=== PATIENT | male | born 1945 | race Caucasian/White ===

== ENCOUNTER 2016-05-26 06:21 | Inpatient (IN) | payer OTHER, MEDICAID ==
[2016-05-26] VITALS (11 sets, daily range): BP systolic 110–191; BP diastolic 63–120
[~2016-05-26] VITALS: Ht 172.7 cm; Wt 83.0 kg
[~2016-05-26 06:21] MED LIST: AMIO200T39 PO; COR6 PO; Digoxin PO; FURO20TA PO; LIP40 PO; Lisinopril PO; POTA10CA42 PO
[2016-05-26] MEDS ORDERED: IPRATROPIUM BROMIDE (0.02%) 0.5MG/2.5ML NEB HHN STA (06:36)
[2016-05-26] MEDS ORDERED: MAGNESIUM 2 G PREMIX 50 ML IV STA (06:36)
[2016-05-26] MEDS ORDERED: ALBUTEROL (0.083%) 2.5MG/3ML NEB HHN STA (06:36)
[2016-05-26] MEDS ORDERED: METHYLPREDNISOLONE SOD SUCC 125 MG/2 ML VIAL IV STA ×2 (06:36)
[2016-05-26] MEDS ORDERED: MAGNESIUM 2 G PREMIX 50 ML IV ONE (06:45)
[2016-05-26 07:14] LABS: BASOPHILS % 0.4 % (0.0-2.0); EOSINOPHILS % 1.2 % (0.0-5.0); HEMATOCRIT. 45.5 % (42.0-52.0); HEMOGLOBIN. 15.5 g/dL (14.0-18.0); LYMPHOCYTES % 26.3 % (20.0-50.0); MEAN CORPUSCULAR HEMOGLOBIN 33.9 pg (28.0-32.0); MEAN CORPUSCULAR HGB CONC 34.1 g/dL (31.0-37.0); MEAN CORPUSCULAR VOLUME 99.5 fL (80.0-94.0); MEAN PLATELET VOLUME 9.5 fl (7.4-10.4); MONOCYTES % 2.8 % (2.0-8.0); NEUTROPHILS % 69.3 % (40.0-76.0); PLATELET 119 x1000/uL (130-400); RED BLOOD CELL COUNT 4.58 mill/uL (4.7-6.1); RED CELL DISTRIBUTION WIDTH 14.3 % (11.6-14.6); WHITE BLOOD COUNT 18.3 x1000/uL (4.5-11.0)
[2016-05-26 07:21] LABS: PROTHROMBIN TIME 10.5 sec
[2016-05-26 07:25] LABS: ALANINE AMINOTRANSFERASE 18 IU/L (13-61); ALBUMIN 3.9 g/dL (3.4-5.0); ANION GAP 14; CALCIUM 8.3 mg/dL (8.5-10.1); CARBON DIOXIDE 26 mEq/L (21-32); CHLORIDE 101 mEq/L (98-107); INDEX HEMOLYSI 1 (1-3); INDEX ICTERIC 1 (1-4); INDEX LIPEMIC 1 (1-3); UREA NITROGEN BLOOD 14 mg/dL (7-21)
[2016-05-26 07:30] LABS: NT PRO B-TYPE NATRIURETIC PEP 1927 pg/mL (5-125); TROPONIN I < 0.02 ng/mL (0.00-0.04); eGFR > 60 mL/min (>60)
[2016-05-26] MEDS ORDERED: FUROSEMIDE 20MG/2ML VIAL IVP ONE (07:45)
[2016-05-26] MEDS ORDERED: ENALAPRIL 2.5MG/2ML VIAL 2ML IV ONE (08:15)
[2016-05-26 08:54] LABS: BG BASE EXCESS -3.8 mmol/L (-2.0-2.0); BG BILEVEL POS AIRWAY PRESSURE ST=15/5; BG CARBOXYHEMOGLOBIN 1.3 % (0.5-1.5); BG DEOXYHEMOGLOBIN 0.5 % (0.0-5.0); BG FRACTION INSPIRED OXYGEN 100; BG HCO3 ACT 22.5 mmol/L (22.0-26.0); BG METHEMOGLOBIN 0.2 % (0.0-1.5); BG OXYGEN SATURATION 99.5 % (92.0-98.5); BG PCO2 45.6 mmHg (35.0-45.0); BG PH 7.312 (7.350-7.450); BG PO2 294.5 mmHg (75.0-100.0); BG PRESSURE SUPPORT 10; BG SAMPLE SITE LEFT RADIAL; BG TOTAL HEMOGLOBIN 15.6 g/dL (12.0-18.0); BG VENT MODE MASK - BIPAP; BG VENT RATE 18 set
[2016-05-26] MEDS ORDERED: IPRATROPIUM/ALBUTEROL 0.5-3(2.5)MG/3ML NEB HHN PRN (09:15)
[2016-05-26] MEDS ORDERED: LORAZEPAM 2MG/ML CPJ IV PRN (09:30)
[2016-05-26] MEDS ORDERED: FUROSEMIDE 20MG/2ML VIAL IVP NR (10:40)
[2016-05-26] MEDS ORDERED: ENOXAPARIN 40MG/0.4ML SYR SUBCUT ONE (10:45)
[2016-05-26 10:49] LABS: CLARITY URINE CLEAR (CLEAR); COLOR URINE YELLOW (YELLOW); GLUCOSE URINE 1+ (NEGATIVE); KETONES URINE NEGATIVE (NEGATIVE); LEUKOCYTE ESTERASE URINE NEGATIVE (NEGATIVE); NITRITE URINE NEGATIVE (NEGATIVE); OCCULT BLOOD URINE NEGATIVE (NEGATIVE); PH URINE 5.5 (4.5-8.0); PROTEIN URINE 1+ (NEGATIVE); SPECIFIC GRAVITY URINE 1.009 (1.005-1.030); UROBILINOGEN URINE 0.2 E.U./dL (0.2-1.0)
[2016-05-26] MEDS ORDERED: CEFTRIAXONE 2 G in DEXTROSE 5% WATER 50 ML IV SCH (11:00)
[2016-05-26 11:11] LABS: FINE GRANULAR CASTS URINE 0-5 /lpf; HYALINE CASTS URINE 0-5 /lpf; SQUAMOUS EPITHELIAL CELL URINE FEW /lpf (RARE/1+)
[2016-05-26 11:12] LABS: RBC URINE 0-2 /hpf (0-2)
[2016-05-26 11:25] LABS: *AMPHETAMINES SCREEN URINE NEGATIVE (NEGATIVE); *BARBITURATES SCREEN URINE NEGATIVE (NEGATIVE); *BENZODIAZEPINES SCREEN URINE NEGATIVE (NEGATIVE); *COCAINE SCREEN URINE NEGATIVE (NEGATIVE); CANNABINOID URINE SCREEN NEGATIVE (NEGATIVE); ECSTASY MDMA SCREEN URINE NEGATIVE (NEGATIVE); METHADONE URINE SCREEN NEGATIVE (NEGATIVE); OPIATES URINE SCREEN NEGATIVE (NEGATIVE); PHENCYCLIDINE URINE SCREEN NEGATIVE (NEGATIVE)
[2016-05-26] MEDS ORDERED: AZITHROMYCIN 500 MG in DEXT 5% WATER 250 ML IV SCH (11:30)
[2016-05-26 11:35] LABS: BACTERIA URINE TRACE; WBC URINE 0-2 /hpf (0-2)
[2016-05-26 12:15] LABS: MAGNESIUM 2.4 mg/dL (1.8-2.4)
[2016-05-26] MEDS ORDERED: ENOXAPARIN 40MG/0.4ML SYR SUBCUT SCH (13:00)
[2016-05-26] MEDS ORDERED: NICOTINE 21MG PATCH TD SCH (13:00)
[2016-05-26] MEDS: AMIODARONE HCL 200 MG TABLET PO SCH (13:59)
[2016-05-26] MEDS: FOLIC ACID 1MG TABLET PO SCH (14:04)
[2016-05-26] MEDS: MULTIVITAMINS,THER W-MINERALS TABLET PO SCH (14:04)
[2016-05-26] MEDS: POTASSIUM CHLORIDE 10MEQ TABLET SR PO SCH (14:04)
[2016-05-26] MEDS: THIAMINE HCL 100MG TABLET PO SCH (14:05)
[2016-05-26] MEDS ORDERED: CLONIDINE 0.2MG TABLET PO PRN (14:15)
[2016-05-26 14:19] LABS: HEPATITIS B SURFACE ANTIGEN NEGATIVE
[2016-05-26] MEDS: AZITHROMYCIN 500 MG in DEXT 5% WATER 250 ML IV SCH ×2 (14:22→14:26)
[2016-05-26] MEDS ORDERED: POTASSIUM CHLORIDE 20 MEQ/PACKET PO SCH (14:30)
[2016-05-26 14:47] LABS: HEPATITIS B CORE AB IGM NEGATIVE
[2016-05-26 14:48] LABS: HEPATITIS A AB IGM NEGATIVE (NEGATIVE)
[2016-05-26 15:01] LABS: HEPATITIS C VIR.AB > 11.00 INDEXVAL (0.00-0.80)
[2016-05-26] MEDS: DIGOXIN 125MCG TABLET PO SCH (17:49)
[2016-05-26] MEDS: ATORVASTATIN CALCIUM 40MG TABLET PO SCH (20:39)
[2016-05-26] MEDS: CARVEDILOL 6.25 MG TABLET PO SCH (20:40)
[2016-05-26] MEDS ORDERED: ENOXAPARIN 40MG/0.4ML SYR SUBCUT NR (21:00)
[2016-05-26] MEDS ORDERED: HYDROCODONE/ACETAMINOPHEN 5/325MG TABLET PO PRN (21:30)
[2016-05-26] MEDS ORDERED: ONDANSETRON HCL 4MG/2ML VIAL IV PRN (21:30)
[2016-05-27] VITALS (13 sets, daily range): BP systolic 109–145; BP diastolic 59–87
[2016-05-27] MEDS: FUROSEMIDE 40MG/4ML VIAL IVP SCH ×2 (06:27→18:16)
[2016-05-27 06:47] LABS: HEMATOCRIT. 39.3 % (42.0-52.0); HEMOGLOBIN. 13.6 g/dL (14.0-18.0); MEAN CORPUSCULAR HEMOGLOBIN 33.8 pg (28.0-32.0); MEAN CORPUSCULAR HGB CONC 34.7 g/dL (31.0-37.0); MEAN CORPUSCULAR VOLUME 97.4 fL (80.0-94.0); MEAN PLATELET VOLUME 9.8 fl (7.4-10.4); PLATELET 119 x1000/uL (130-400); RED BLOOD CELL COUNT 4.03 mill/uL (4.7-6.1); WHITE BLOOD COUNT 22.4 x1000/uL (4.5-11.0)
[2016-05-27 07:28] LABS: CHLORIDE 102 mEq/L (98-107); INDEX HEMOLYSI 1 (1-3); INDEX ICTERIC 1 (1-4); INDEX LIPEMIC 1 (1-3)
[2016-05-27 07:41] LABS: ANION GAP 14; CALCIUM 8.6 mg/dL (8.5-10.1); CARBON DIOXIDE 26 mEq/L (21-32); HDL CHOLESTEROL 47 mg/dL (40-59); LDL CHOLESTEROL 123 mg/dL (5-100); MAGNESIUM 2.1 mg/dL (1.8-2.4); NT PRO B-TYPE NATRIURETIC PEP 4410 pg/mL (5-125); TRIGLYCERIDE 198 mg/dL (0-150); TROPONIN I < 0.02 ng/mL (0.00-0.04); UREA NITROGEN BLOOD 24 mg/dL (7-21); eGFR > 60 mL/min (>60)
[2016-05-27 07:54] LABS: DIFFERENTIAL COMMENT 1
[2016-05-27] MEDS: BUDESONIDE 0.5MG/2ML NEB HHN SCH ×2 (08:40→20:20)
[2016-05-27] MEDS: IPRATROPIUM/ALBUTEROL 0.5-3(2.5)MG/3ML NEB HHN SCH ×3 (08:40→20:19)
[2016-05-27] MEDS ORDERED: DEXTROSE 50% WATER 50ML SYRINGE IV PRN (08:45)
[2016-05-27] MEDS: THIAMINE HCL 100MG TABLET PO SCH (08:59)
[2016-05-27] MEDS: AMIODARONE HCL 200 MG TABLET PO SCH ×2 (09:00→13:53)
[2016-05-27] MEDS: CARVEDILOL 6.25 MG TABLET PO SCH ×3 (09:00→20:53)
[2016-05-27] MEDS ORDERED: NICOTINE 21MG PATCH TD SCH (09:00)
[2016-05-27] MEDS: FOLIC ACID 1MG TABLET PO SCH (09:00)
[2016-05-27] MEDS ORDERED: CEFTRIAXONE 2 G in DEXTROSE 5% WATER 50 ML IV SCH (09:00)
[2016-05-27] MEDS ORDERED: FUROSEMIDE 40MG/4ML VIAL IVP SCH (09:00)
[2016-05-27] MEDS: ENOXAPARIN 80MG/0.8ML SYR SUBCUT SCH ×3 (09:00→20:59)
[2016-05-27] MEDS ORDERED: LISINOPRIL 2.5MG TABLET PO SCH (09:00)
[2016-05-27] MEDS: MULTIVITAMINS,THER W-MINERALS TABLET PO SCH (09:01)
[2016-05-27] MEDS: POTASSIUM CHLORIDE 10MEQ TABLET SR PO SCH (09:01)
[2016-05-27] MEDS: LISINOPRIL 2.5MG TABLET PO SCH ×2 (09:13→20:51)
[2016-05-27 11:56] LABS: PLATELET ESTIMATE SLIGHTLY DECREASED
[2016-05-27] MEDS: BLOOD SUGAR DIAGNOSTIC STRIP TEST SCH ×3 (11:58→21:04)
[2016-05-27] MEDS: INSULIN LISPRO 100 UNITS/ML SUBCUT SCH ×3 (12:10→21:11)
[2016-05-27] MEDS: OMEPRAZOLE 20MG CAPSULE EXTENDED RELEASE PO SCH (12:49)
[2016-05-27] MEDS ORDERED: CLONIDINE 0.1MG TABLET PO PRN (13:58)
[2016-05-27] MEDS: CEFOXITIN SODIUM 2 G in DEXT 5% WATER 100 ML IV SCH (18:16)
[2016-05-27] MEDS: DIGOXIN 125MCG TABLET PO SCH (18:17)
[2016-05-27] MEDS: DILTIAZEM HCL 30MG TABLET PO SCH (18:17)
[2016-05-27] MEDS: ATORVASTATIN CALCIUM 40MG TABLET PO SCH (20:51)
[2016-05-28] VITALS (9 sets, daily range): BP systolic 86–133; BP diastolic 34–73
[2016-05-28] MEDS: DILTIAZEM HCL 30MG TABLET PO SCH ×2 (01:04→06:24)
[2016-05-28] MEDS: CEFOXITIN SODIUM 2 G in DEXT 5% WATER 100 ML IV SCH ×2 (01:05→08:37)
[2016-05-28 05:58] LABS: HEMOGLOBIN. 14.4 g/dL (14.0-18.0); MEAN CORPUSCULAR HEMOGLOBIN 33.3 pg (28.0-32.0); MEAN CORPUSCULAR HGB CONC 34.3 g/dL (31.0-37.0); MEAN CORPUSCULAR VOLUME 97.1 fL (80.0-94.0); MEAN PLATELET VOLUME 10.3 fl (7.4-10.4); PLATELET 102 x1000/uL (130-400); RED BLOOD CELL COUNT 4.32 mill/uL (4.7-6.1); RED CELL DISTRIBUTION WIDTH 14.2 % (11.6-14.6); WHITE BLOOD COUNT 21.6 x1000/uL (4.5-11.0)
[2016-05-28 06:08] LABS: ANION GAP 15; CALCIUM 9.3 mg/dL (8.5-10.1); CARBON DIOXIDE 29 mEq/L (21-32); CHLORIDE 98 mEq/L (98-107); INDEX HEMOLYSI 2 (1-3); INDEX ICTERIC 1 (1-4); INDEX LIPEMIC 1 (1-3); MAGNESIUM 1.7 mg/dL (1.8-2.4); UREA NITROGEN BLOOD 32 mg/dL (7-21); eGFR > 60 mL/min (>60)
[2016-05-28] MEDS: OMEPRAZOLE 20MG CAPSULE EXTENDED RELEASE PO SCH (06:25)
[2016-05-28] MEDS: FUROSEMIDE 40MG/4ML VIAL IVP SCH (06:25)
[2016-05-28 06:43] LABS: DIFFERENTIAL COMMENT 1
[2016-05-28] MEDS: BLOOD SUGAR DIAGNOSTIC STRIP TEST SCH (07:30)
[2016-05-28] MEDS ORDERED: GLIMEPIRIDE 2MG TABLET PO SCH (07:30)
[2016-05-28] MEDS: CARVEDILOL 6.25 MG TABLET PO SCH (08:37)
[2016-05-28] MEDS: LISINOPRIL 2.5MG TABLET PO SCH (08:38)
[2016-05-28] MEDS: ENOXAPARIN 80MG/0.8ML SYR SUBCUT SCH (09:00)
[2016-05-28] MEDS: THIAMINE HCL 100MG TABLET PO SCH (09:52)
[2016-05-28] MEDS: POTASSIUM CHLORIDE 10MEQ TABLET SR PO SCH (09:52)
[2016-05-28] MEDS: FOLIC ACID 1MG TABLET PO SCH (09:52)
[2016-05-28] MEDS: MULTIVITAMINS,THER W-MINERALS TABLET PO SCH (09:52)
[2016-05-28] MEDS: INSULIN LISPRO 100 UNITS/ML SUBCUT SCH (09:57)
[2016-05-28 10:20] LABS: PLATELET ESTIMATE DECREASED
[2016-05-28] MEDS: IPRATROPIUM/ALBUTEROL 0.5-3(2.5)MG/3ML NEB HHN SCH ×2 (10:29)
[2016-05-28] MEDS: BUDESONIDE 0.5MG/2ML NEB HHN SCH (10:29)
[2016-05-28] MEDS ORDERED: MAGNESIUM 2 G PREMIX 50 ML IV NR (12:00)
== END 2016-05-28 12:00 | disposition left against medical advice (07) | DRG 291 ==
LOC: ER 06:22 → 5EST 09:41
PROVIDERS: ADMIT Internal Medicine; ATTEND Internal Medicine
PROC: 5A09457 Assistance with Respiratory Ventilation, 24-96 Consecutive Hours, Continuous Positive Airway Pressure (ICD-10-PCS; principal; 2016-05-26)
DX: I11.0 Hypertensive heart disease with heart failure (principal); J96.00 Acute respiratory failure, unspecified whether with hypoxia or hypercapnia; I48.1 Persistent atrial fibrillation; J44.1 Chronic obstructive pulmonary disease with (acute) exacerbation; I50.23 Acute on chronic systolic (congestive) heart failure; I42.0 Dilated cardiomyopathy; B19.20 Unspecified viral hepatitis C without hepatic coma; D72.829 Elevated white blood cell count, unspecified; E11.65 Type 2 diabetes mellitus with hyperglycemia; E78.00 Pure hypercholesterolemia, unspecified; E78.5 Hyperlipidemia, unspecified; F12.90 Cannabis use, unspecified, uncomplicated; F17.200 Nicotine dependence, unspecified, uncomplicated; I25.10 Atherosclerotic heart disease of native coronary artery without angina pectoris; I70.8 Atherosclerosis of other arteries; I25.5 Ischemic cardiomyopathy; E11.51 Type 2 diabetes mellitus with diabetic peripheral angiopathy without gangrene; Z53.21 Procedure and treatment not carried out due to patient leaving prior to being seen by health care provider; I27.2 Other secondary pulmonary hypertension; I34.0 Nonrheumatic mitral (valve) insufficiency; I48.0 Paroxysmal atrial fibrillation; Z79.84 Long term (current) use of oral hypoglycemic drugs; Z95.1 Presence of aortocoronary bypass graft; Z89.021 Acquired absence of right finger(s); Z79.4 Long term (current) use of insulin
CPT/HCPCS: 36415; 36600; 71010; 78582; 80048; 80053; 80061; 80162; 80305; 81001; 82375; 82805; 82962; 83036; 83735; 83880; 84484; 85025; 85379; 85610; 86705; 86709; 86803; 87040; 87340; 87804; 93005; 93923; 93970; 94640; 94660; 96374; 96375; 99291; A9558; J0456; J0694; J0696; J1650; J1815; J1940; J2060; J2405; J2930; J3475; J3490; J7050; J7060; J7620; J7626

== ENCOUNTER 2016-12-24 02:39 | Inpatient (IN) | payer OTHER, MEDICAID ==
[~2016-12-24] VITALS: Ht 167.6 cm; Wt 80.1 kg
[2016-12-24] VITALS (73 sets, daily range): BP systolic 83–169; BP diastolic 25–109
[~2016-12-24 02:39] MED LIST changes: +AMI2 PO; -AMIO200T39 PO; +FURO-152 PO; -FURO20TA PO
[2016-12-24] MEDS ORDERED: ENALAPRIL 2.5MG/2ML VIAL 2ML IV STA (02:48)
[2016-12-24] MEDS ORDERED: FUROSEMIDE 40MG/4ML VIAL IV STA (02:48)
[2016-12-24] MEDS ORDERED: PROPOFOL 10MG/ML 100ML 100 ML IV ONE ×2 (03:00→06:00)
[2016-12-24] MEDS ORDERED: SUCCINYLCHOLINE CHLORIDE 200MG/10ML VIAL IV ONE ×2 (03:00→13:49)
[2016-12-24] MEDS ORDERED: ETOMIDATE 2MG/ML 10ML VIAL IV ONE ×2 (03:00→13:49)
[2016-12-24] MEDS ORDERED: NITROGLYCERIN 50MG PREMIX 250 ML IV ONE (03:00)
[2016-12-24 03:18] LABS: BASOPHILS % 0.4 % (0.0-2.0); HEMATOCRIT. 48.1 % (42.0-52.0); HEMOGLOBIN. 16.2 g/dL (14.0-18.0); LYMPHOCYTES % 27.8 % (20.0-50.0); MEAN CORPUSCULAR HEMOGLOBIN 33.7 pg (28.0-32.0); MEAN CORPUSCULAR VOLUME 100.1 fL (80.0-94.0); MEAN PLATELET VOLUME 9.4 fl (7.4-10.4); MONOCYTES % 3.9 % (2.0-8.0); NEUTROPHILS % 66.9 % (40.0-76.0); PLATELET 159 x1000/uL (130-400); RED BLOOD CELL COUNT 4.81 mill/uL (4.7-6.1); RED CELL DISTRIBUTION WIDTH 14.3 % (11.6-14.6)
[2016-12-24 03:23] LABS: INR 1.3; PROTHROMBIN TIME 13.4 sec (9.4-11.6)
[2016-12-24 03:32] LABS: CARBON DIOXIDE 23 mEq/L (21-32); CHLORIDE 105 mEq/L (98-107); TROPONIN I < 0.02 ng/mL (0.00-0.04)
[2016-12-24] MEDS ORDERED: LEVOFLOXACIN 750MG PREMIX 150 ML IV ONE (03:45)
[2016-12-24 04:00] LABS: BG BASE EXCESS -10.6 mmol/L (-2.0-2.0); BG CARBOXYHEMOGLOBIN 1.4 % (0.5-1.5); BG DEOXYHEMOGLOBIN 3.7 % (0.0-5.0); BG FRACTION INSPIRED OXYGEN 80; BG HCO3 ACT 19.1 mmol/L (22.0-26.0); BG METHEMOGLOBIN 0.4 % (0.0-1.5); BG OXYGEN SATURATION 96.2 % (92.0-98.5); BG OXYHEMOGLOBIN 94.5 % (94.0-97.0); BG PCO2 56.9 mmHg (35.0-45.0); BG PH 7.143 (7.350-7.450); BG PO2 100.5 mmHg (75.0-100.0); BG SAMPLE SITE RIGHT RADIAL; BG TIDAL VOLUME(mL) 500 mL; BG TOTAL HEMOGLOBIN 16.3 g/dL (12.0-18.0); BG VENT MODE VENT - A/C; BG VENT RATE 16 set
[2016-12-24] MEDS ORDERED: PANTOPRAZOLE SODIUM 40 MG/VIAL IV SCH (05:30)
[2016-12-24] MEDS ORDERED: DEXTROSE 50% WATER 50ML SYRINGE IV PRN (07:45)
[2016-12-24] MEDS ORDERED: NOREPINEPHRINE 4 MG in DEXT 5% WATER 246 ML IV PRN (08:30)
[2016-12-24 08:41] LABS: HEMATOCRIT 41.2 % (42.0-52.0); HEMOGLOBIN 14.7 g/dL (14.0-18.0); MEAN CORPUSCULAR HEMOGLOBIN 34.3 pg (28.0-32.0); MEAN CORPUSCULAR VOLUME 96.3 fL (80.0-94.0); PLATELET 151 x1000/uL (130-400); RED BLOOD CELL COUNT 4.28 mill/uL (4.7-6.1)
[2016-12-24 08:58] LABS: CHLORIDE 106 mEq/L (98-107)
[2016-12-24] MEDS ORDERED: ENOXAPARIN 40MG/0.4ML SYR SUBCUT SCH (09:00)
[2016-12-24 09:07] LABS: CARBON DIOXIDE 26 mEq/L (21-32)
[2016-12-24] MEDS: PIPERACILLIN/TAZ 2.25G PREMIX 50 ML IV SCH ×2 (09:08→17:19)
[2016-12-24] MEDS: LISINOPRIL 2.5MG TABLET PO SCH (09:45)
[2016-12-24] MEDS: CARVEDILOL 3.125 MG TABLET PO SCH ×2 (10:00→21:15)
[2016-12-24] MEDS: INSULIN LISPRO 100 UNITS/ML SUBCUT SCH ×2 (12:17→18:00)
[2016-12-24] MEDS ORDERED: ENALAPRIL 1.25MG/ML VIAL 1ML IV PRN (12:45)
[2016-12-24] MEDS: BLOOD SUGAR DIAGNOSTIC STRIP TEST SCH ×2 (12:52→18:14)
[2016-12-24 13:51] LABS: BG BASE EXCESS 0.1 mmol/L (-2.0-2.0); BG CARBOXYHEMOGLOBIN 0.8 % (0.5-1.5); BG DEOXYHEMOGLOBIN 0.7 % (0.0-5.0); BG FRACTION INSPIRED OXYGEN 80; BG HCO3 ACT 25.1 mmol/L (22.0-26.0); BG METHEMOGLOBIN 0.3 % (0.0-1.5); BG OXYGEN SATURATION 99.3 % (92.0-98.5); BG OXYHEMOGLOBIN 98.2 % (94.0-97.0); BG PCO2 42.3 mmHg (35.0-45.0); BG PH 7.392 (7.350-7.450); BG PO2 189.3 mmHg (75.0-100.0); BG SAMPLE SITE RIGHT BRACHIAL; BG TIDAL VOLUME(mL) 500 mL; BG TOTAL HEMOGLOBIN 15.5 g/dL (12.0-18.0); BG VENT MODE VENT - A/C; BG VENT RATE 16 set
[2016-12-24] MEDS: PROPOFOL 10MG/ML 100ML 100 ML IV PRN ×2 (14:54→22:29)
[2016-12-24 15:53] LABS: BASOPHILS % 0.4 % (0.0-2.0); EOSINOPHILS % 0.8 % (0.0-5.0); HEMATOCRIT. 41.5 % (42.0-52.0); HEMOGLOBIN. 14.2 g/dL (14.0-18.0); LYMPHOCYTES % 16.4 % (20.0-50.0); MEAN CORPUSCULAR HEMOGLOBIN 33.6 pg (28.0-32.0); MEAN CORPUSCULAR VOLUME 97.9 fL (80.0-94.0); MEAN PLATELET VOLUME 9.9 fl (7.4-10.4); MONOCYTES % 9.4 % (2.0-8.0); PLATELET 130 x1000/uL (130-400); RED BLOOD CELL COUNT 4.24 mill/uL (4.7-6.1); RED CELL DISTRIBUTION WIDTH 14.4 % (11.6-14.6)
[2016-12-24] MEDS: IPRATROPIUM/ALBUTEROL 0.5-3(2.5)MG/3ML NEB HHN SCH ×2 (16:17→20:12)
[2016-12-24 16:48] LABS: *AMPHETAMINES SCREEN URINE NEGATIVE (NEGATIVE); *BARBITURATES SCREEN URINE NEGATIVE (NEGATIVE); *BENZODIAZEPINES SCREEN URINE NEGATIVE (NEGATIVE); *COCAINE SCREEN URINE NEGATIVE (NEGATIVE); CANNABINOID URINE SCREEN NEGATIVE (NEGATIVE); METHADONE URINE SCREEN NEGATIVE (NEGATIVE); OPIATES URINE SCREEN NEGATIVE (NEGATIVE); PHENCYCLIDINE URINE SCREEN NEGATIVE (NEGATIVE)
[2016-12-24] MEDS: FUROSEMIDE 40MG/4ML VIAL IVP SCH (18:02)
[2016-12-24] MEDS: SUCRALFATE 1 G/10 ML UDC PO SCH (19:50)
[2016-12-24 20:16] LABS: BASOPHILS % 0.6 % (0.0-2.0); EOSINOPHILS % 0.7 % (0.0-5.0); HEMATOCRIT. 42.9 % (42.0-52.0); LYMPHOCYTES % 14.5 % (20.0-50.0); MEAN CORPUSCULAR HEMOGLOBIN 33.9 pg (28.0-32.0); MEAN CORPUSCULAR VOLUME 96.8 fL (80.0-94.0); MEAN PLATELET VOLUME 9.6 fl (7.4-10.4); MONOCYTES % 10.4 % (2.0-8.0); NEUTROPHILS % 73.8 % (40.0-76.0); PLATELET 151 x1000/uL (130-400); RED BLOOD CELL COUNT 4.43 mill/uL (4.7-6.1); RED CELL DISTRIBUTION WIDTH 13.9 % (11.6-14.6)
[2016-12-24] MEDS: PANTOPRAZOLE SODIUM 40 MG/VIAL IV SCH (21:15)
[2016-12-24 22:28] LABS: HEMATOCRIT 44.1 % (42.0-52.0); HEMOGLOBIN 15.5 g/dL (14.0-18.0)
[2016-12-25] VITALS (91 sets, daily range): BP systolic 87–158; BP diastolic 48–106
[2016-12-25] MEDS: IPRATROPIUM/ALBUTEROL 0.5-3(2.5)MG/3ML NEB HHN SCH ×7 (00:24→23:55)
[2016-12-25] MEDS: SUCRALFATE 1 G/10 ML UDC PO SCH ×5 (00:50→23:58)
[2016-12-25] MEDS: DILTIAZEM HCL 60MG TABLET PO SCH ×4 (00:51→21:34)
[2016-12-25] MEDS: BLOOD SUGAR DIAGNOSTIC STRIP TEST SCH ×5 (00:52→23:54)
[2016-12-25] MEDS: PIPERACILLIN/TAZ 2.25G PREMIX 50 ML IV SCH ×2 (00:55→10:46)
[2016-12-25] MEDS ORDERED: DEXT 5%/0.45% NACL 1000ML 1,000 ML IV SCH (03:45)
[2016-12-25] MEDS: PROPOFOL 10MG/ML 100ML 100 ML IV PRN (04:52)
[2016-12-25] MEDS: INSULIN LISPRO 100 UNITS/ML SUBCUT SCH ×5 (05:53→23:57)
[2016-12-25 06:04] LABS: BASOPHILS % 0.4 % (0.0-2.0); EOSINOPHILS % 0.2 % (0.0-5.0); HEMOGLOBIN. 14.6 g/dL (14.0-18.0); LYMPHOCYTES % 10.4 % (20.0-50.0); MEAN CORPUSCULAR VOLUME 95.6 fL (80.0-94.0); MEAN PLATELET VOLUME 9.9 fl (7.4-10.4); MONOCYTES % 5.9 % (2.0-8.0); NEUTROPHILS % 83.1 % (40.0-76.0); PLATELET 136 x1000/uL (130-400); RED BLOOD CELL COUNT 4.29 mill/uL (4.7-6.1); RED CELL DISTRIBUTION WIDTH 14.1 % (11.6-14.6)
[2016-12-25 06:34] LABS: CHLORIDE 104 mEq/L (98-107)
[2016-12-25 06:38] LABS: CARBON DIOXIDE 24 mEq/L (21-32)
[2016-12-25] MEDS: FUROSEMIDE 40MG/4ML VIAL IVP SCH ×2 (06:55→17:50)
[2016-12-25] MEDS ORDERED: AMIODARONE HCL 900 MG in DEXT 5% WATER 482 ML IV SCH (07:30)
[2016-12-25 07:54] LABS: BG BASE EXCESS 0.6 mmol/L (-2.0-2.0); BG CARBOXYHEMOGLOBIN 0.2 % (0.5-1.5); BG DEOXYHEMOGLOBIN 1.5 % (0.0-5.0); BG FRACTION INSPIRED OXYGEN 80; BG HCO3 ACT 24.4 mmol/L (22.0-26.0); BG METHEMOGLOBIN 0.9 % (0.0-1.5); BG OXYGEN SATURATION 98.5 % (92.0-98.5); BG OXYHEMOGLOBIN 97.4 % (94.0-97.0); BG PCO2 36.9 mmHg (35.0-45.0); BG PH 7.438 (7.350-7.450); BG PO2 146.7 mmHg (75.0-100.0); BG SAMPLE SITE RIGHT RADIAL; BG TIDAL VOLUME(mL) 500 mL; BG TOTAL HEMOGLOBIN 15.4 g/dL (12.0-18.0); BG VENT MODE VENT - A/C; BG VENT RATE 16 set
[2016-12-25] MEDS ORDERED: PANTOPRAZOLE SODIUM 40 MG/VIAL IV SCH (09:00)
[2016-12-25] MEDS: CARVEDILOL 3.125 MG TABLET PO SCH ×2 (09:00→21:34)
[2016-12-25] MEDS: LISINOPRIL 2.5MG TABLET PO SCH (09:00)
[2016-12-25] MEDS ORDERED: AMIODARONE HCL 150 MG in DEXT 5% WATER 100 ML IV NR (09:00)
[2016-12-25] MEDS ORDERED: LIDOCAINE HCL 1% 20ML VIAL (Pyxis) INJ ONE (09:15)
[2016-12-25] MEDS ORDERED: PROPOFOL 10MG/ML 100ML 100 ML IV PRN (09:45)
[2016-12-25] MEDS: PANTOPRAZOLE SODIUM 40 MG/VIAL IV SCH ×2 (10:47→21:35)
[2016-12-25] MEDS ORDERED: DEXT 5%/0.9% NACL 1,000 ML IV SCH (11:30)
[2016-12-25] MEDS ORDERED: MIDAZOLAM HCL 100 MG in DEXT 5% WATER 80 ML IV PRN (13:00)
[2016-12-25] MEDS: DEXT 5%/0.9% NACL KCL 20MEQ/L 1,000 ML IV SCH ×2 (13:20→23:02)
[2016-12-25] MEDS: FENTANYL CITRATE/PF 500 MCG in SODIUM CHLORIDE 0.9% 40 ML IV PRN (13:23)
[2016-12-25 13:57] LABS: AMMONIA 37 uMol/L (<32)
[2016-12-25 14:20] LABS: HEPATITIS B SURFACE ANTIGEN NEGATIVE
[2016-12-25 14:48] LABS: HEPATITIS B CORE AB IGM NEGATIVE
[2016-12-25 14:50] LABS: HEPATITIS A AB IGM NEGATIVE (NEGATIVE)
[2016-12-25 17:30] LABS: CLARITY URINE CLEAR (CLEAR); COLOR URINE YELLOW (YELLOW); GLUCOSE URINE NEGATIVE (NEGATIVE); KETONES URINE NEGATIVE (NEGATIVE); LEUKOCYTE ESTERASE URINE NEGATIVE (NEGATIVE); NITRITE URINE NEGATIVE (NEGATIVE); OCCULT BLOOD URINE 2+ (NEGATIVE); PROTEIN URINE NEGATIVE (NEGATIVE); SPECIFIC GRAVITY URINE 1.011 (1.005-1.030); UROBILINOGEN URINE 0.2 E.U./dL (0.2-1.0)
[2016-12-25] MEDS: PIPERACILLIN/TAZ 3.375G PREMIX 50 ML IV SCH ×2 (17:50→23:58)
[2016-12-25 18:42] LABS: HEMATOCRIT 46.1 % (42.0-52.0); HEMOGLOBIN 15.8 g/dL (14.0-18.0)
[2016-12-25] MEDS: RISPERIDONE 1MG TABLET GT SCH (21:35)
[2016-12-26] VITALS (92 sets, daily range): BP systolic 83–152; BP diastolic 39–98
[2016-12-26 01:09] LABS: HEMATOCRIT 37.9 % (42.0-52.0); HEMOGLOBIN 13.6 g/dL (14.0-18.0)
[2016-12-26] MEDS: IPRATROPIUM/ALBUTEROL 0.5-3(2.5)MG/3ML NEB HHN SCH ×5 (04:07→20:01)
[2016-12-26] MEDS: SUCRALFATE 1 G/10 ML UDC PO SCH ×3 (05:20→17:06)
[2016-12-26] MEDS: PIPERACILLIN/TAZ 3.375G PREMIX 50 ML IV SCH ×3 (05:20→17:06)
[2016-12-26] MEDS: DILTIAZEM HCL 60MG TABLET PO SCH ×3 (05:21→22:10)
[2016-12-26] MEDS: BLOOD SUGAR DIAGNOSTIC STRIP TEST SCH ×3 (05:48→17:00)
[2016-12-26 05:54] LABS: EOSINOPHILS % 0.8 % (0.0-5.0); HEMATOCRIT. 38.9 % (42.0-52.0); HEMOGLOBIN. 13.8 g/dL (14.0-18.0); MEAN CORPUSCULAR HEMOGLOBIN 34.1 pg (28.0-32.0); MEAN CORPUSCULAR VOLUME 96.1 fL (80.0-94.0); MEAN PLATELET VOLUME 9.6 fl (7.4-10.4); MONOCYTES % 6.2 % (2.0-8.0); PLATELET 111 x1000/uL (130-400); RED BLOOD CELL COUNT 4.05 mill/uL (4.7-6.1); RED CELL DISTRIBUTION WIDTH 13.9 % (11.6-14.6)
[2016-12-26] MEDS: INSULIN LISPRO 100 UNITS/ML SUBCUT SCH ×3 (05:55→17:00)
[2016-12-26] MEDS ORDERED: DILTIAZEM HCL 60MG TABLET PO SCH (06:00)
[2016-12-26 06:31] LABS: CARBON DIOXIDE 29 mEq/L (21-32); CHLORIDE 104 mEq/L (98-107)
[2016-12-26 07:33] LABS: BG BASE EXCESS -2.7 mmol/L (-2.0-2.0); BG CARBOXYHEMOGLOBIN 1.1 % (0.5-1.5); BG FRACTION INSPIRED OXYGEN 40; BG HCO3 ACT 21.7 mmol/L (22.0-26.0); BG METHEMOGLOBIN 0.3 % (0.0-1.5); BG OXYGEN SATURATION 91.9 % (92.0-98.5); BG OXYHEMOGLOBIN 90.6 % (94.0-97.0); BG PCO2 36.7 mmHg (35.0-45.0); BG PO2 65.5 mmHg (75.0-100.0); BG SAMPLE SITE LEFT RADIAL; BG TIDAL VOLUME(mL) 500 mL; BG VENT MODE VENT - A/C; BG VENT RATE 14 set
[2016-12-26] MEDS: FUROSEMIDE 40MG/4ML VIAL IVP SCH ×2 (08:08→17:06)
[2016-12-26] MEDS: PANTOPRAZOLE SODIUM 40 MG/VIAL IV SCH ×2 (08:08→22:10)
[2016-12-26] MEDS: AMIODARONE HCL 200 MG TABLET NG SCH ×2 (08:09→22:09)
[2016-12-26] MEDS: RISPERIDONE 1MG TABLET GT SCH ×2 (08:09→22:09)
[2016-12-26] MEDS: LISINOPRIL 2.5MG TABLET PO SCH (08:09)
[2016-12-26] MEDS: CARVEDILOL 3.125 MG TABLET PO SCH ×2 (08:09→22:09)
[2016-12-26] MEDS: DEXT 5%/0.9% NACL KCL 20MEQ/L 1,000 ML IV SCH (09:42)
[2016-12-26] MEDS: FENTANYL CITRATE/PF 500 MCG in SODIUM CHLORIDE 0.9% 40 ML IV PRN (09:52)
[2016-12-26] MEDS: INSULIN DETEMIR UD 100 UNITS/ML SYR SUBCUT SCH (11:01)
[2016-12-26] MEDS ORDERED: METOCLOPRAMIDE HCL 10MG/2ML VIAL IV SCH (12:00)
[2016-12-26 12:46] LABS: BG BASE EXCESS -0.3 mmol/L (-2.0-2.0); BG CARBOXYHEMOGLOBIN 0.7 % (0.5-1.5); BG DEOXYHEMOGLOBIN 5.8 % (0.0-5.0); BG FRACTION INSPIRED OXYGEN 40; BG HCO3 ACT 23.7 mmol/L (22.0-26.0); BG OXYGEN SATURATION 94.2 % (92.0-98.5); BG OXYHEMOGLOBIN 93.5 % (94.0-97.0); BG PCO2 36.6 mmHg (35.0-45.0); BG PH 7.429 (7.350-7.450); BG PO2 71.8 mmHg (75.0-100.0); BG PRESSURE SUPPORT 8; BG SAMPLE SITE RIGHT RADIAL; BG TOTAL HEMOGLOBIN 13.7 g/dL (12.0-18.0); BG VENT MODE VENT - CPAP
[2016-12-26] MEDS: SODIUM CHL 0.9% + KCL 20MEQ/L 1,000 ML IV SCH (12:50)
[2016-12-26] MEDS: METOCLOPRAMIDE 10MG/10 ML UDC NG SCH ×2 (12:50→17:06)
[2016-12-26] MEDS ORDERED: METOCLOPRAMIDE 10MG/10 ML UDC ONE (12:55)
[2016-12-26] MEDS ORDERED: DEXT 5%/0.45% NACL KCL 20MEQ/L 1,000 ML IV PRN (16:30)
[2016-12-26] MEDS ORDERED: DEXT 5%/0.9% NACL KCL 20MEQ/L 1,000 ML IV PRN (17:00)
[2016-12-26 18:28] LABS: HEMATOCRIT 40.3 % (42.0-52.0); HEMOGLOBIN 14.1 g/dL (14.0-18.0)
[2016-12-27] VITALS (82 sets, daily range): BP systolic 85–147; BP diastolic 55–111
[2016-12-27] MEDS: BLOOD SUGAR DIAGNOSTIC STRIP TEST SCH ×4 (00:08→17:50)
[2016-12-27] MEDS: SUCRALFATE 1 G/10 ML UDC PO SCH ×4 (00:15→17:02)
[2016-12-27] MEDS: METOCLOPRAMIDE 10MG/10 ML UDC NG SCH ×4 (00:15→17:02)
[2016-12-27] MEDS: PIPERACILLIN/TAZ 3.375G PREMIX 50 ML IV SCH ×4 (00:15→17:03)
[2016-12-27] MEDS: INSULIN LISPRO 100 UNITS/ML SUBCUT SCH ×4 (00:17→17:50)
[2016-12-27] MEDS: SODIUM CHL 0.9% + KCL 20MEQ/L 1,000 ML IV SCH ×2 (02:28→15:04)
[2016-12-27] MEDS: IPRATROPIUM/ALBUTEROL 0.5-3(2.5)MG/3ML NEB HHN SCH ×6 (04:18→20:00)
[2016-12-27 05:31] LABS: BASOPHILS % 0.4 % (0.0-2.0); EOSINOPHILS % 0.3 % (0.0-5.0); HEMATOCRIT. 36.6 % (42.0-52.0); HEMOGLOBIN. 12.8 g/dL (14.0-18.0); LYMPHOCYTES % 14.5 % (20.0-50.0); MEAN CORPUSCULAR HEMOGLOBIN 33.7 pg (28.0-32.0); MEAN CORPUSCULAR VOLUME 96.6 fL (80.0-94.0); MEAN PLATELET VOLUME 9.8 fl (7.4-10.4); MONOCYTES % 8.8 % (2.0-8.0); PLATELET 107 x1000/uL (130-400); RED BLOOD CELL COUNT 3.79 mill/uL (4.7-6.1); RED CELL DISTRIBUTION WIDTH 14.1 % (11.6-14.6)
[2016-12-27] MEDS: DILTIAZEM HCL 60MG TABLET PO SCH ×2 (06:11→13:42)
[2016-12-27 06:29] LABS: CARBON DIOXIDE 28 mEq/L (21-32); CHLORIDE 104 mEq/L (98-107)
[2016-12-27 08:05] LABS: BG BASE EXCESS 1.3 mmol/L (-2.0-2.0); BG CARBOXYHEMOGLOBIN 0.3 % (0.5-1.5); BG DEOXYHEMOGLOBIN 5.6 % (0.0-5.0); BG FRACTION INSPIRED OXYGEN 50; BG HCO3 ACT 26.4 mmol/L (22.0-26.0); BG METHEMOGLOBIN 0.5 % (0.0-1.5); BG OXYGEN SATURATION 94.4 % (92.0-98.5); BG OXYHEMOGLOBIN 93.6 % (94.0-97.0); BG PCO2 43.8 mmHg (35.0-45.0); BG PH 7.398 (7.350-7.450); BG PO2 73.5 mmHg (75.0-100.0); BG SAMPLE SITE RIGHT BRACHIAL; BG TOTAL HEMOGLOBIN 13.3 g/dL (12.0-18.0); BG VENT MODE MASK - AEROSOL
[2016-12-27] MEDS: PANTOPRAZOLE SODIUM 40 MG/VIAL IV SCH ×2 (08:08→20:14)
[2016-12-27] MEDS: RISPERIDONE 1MG TABLET GT SCH ×2 (08:08→20:13)
[2016-12-27] MEDS: AMIODARONE HCL 200 MG TABLET NG SCH ×2 (08:08→21:57)
[2016-12-27] MEDS: FUROSEMIDE 40MG/4ML VIAL IVP SCH ×2 (08:08→17:02)
[2016-12-27] MEDS: LISINOPRIL 2.5MG TABLET PO SCH (08:08)
[2016-12-27] MEDS: CARVEDILOL 3.125 MG TABLET PO SCH ×2 (08:09→21:35)
[2016-12-27] MEDS: INSULIN DETEMIR UD 100 UNITS/ML SYR SUBCUT SCH (10:10)
[2016-12-27] MEDS ORDERED: LACTULOSE 20G/30ML UDC PO SCH (12:45)
[2016-12-27] MEDS: MILRINONE 20MG-DEXT 5% PREMIX 100 ML IV SCH (12:54)
[2016-12-27] MEDS ORDERED: POTASSIUM CHLORIDE 20MEQ TABLET SR PO NR (13:30)
[2016-12-27 16:22] LABS: AMMONIA 61 uMol/L (<32)
[2016-12-27] MEDS ORDERED: LACTULOSE 20G/30ML UDC PO NR (16:45)
[2016-12-27] MEDS ORDERED: METOLAZONE 5MG TABLET NG NR (16:45)
[2016-12-27] MEDS: LACTULOSE 20G/30ML UDC PO SCH (22:46)
[2016-12-27] MEDS: DILTIAZEM HCL 30MG TABLET PO SCH (23:13)
[2016-12-28] VITALS (97 sets, daily range): BP systolic 88–163; BP diastolic 36–101
[2016-12-28] MEDS: BLOOD SUGAR DIAGNOSTIC STRIP TEST SCH ×5 (00:16→23:54)
[2016-12-28] MEDS: PIPERACILLIN/TAZ 3.375G PREMIX 50 ML IV SCH ×2 (00:20→06:22)
[2016-12-28] MEDS: METOCLOPRAMIDE 10MG/10 ML UDC NG SCH ×4 (00:20→17:16)
[2016-12-28] MEDS: SUCRALFATE 1 G/10 ML UDC PO SCH ×4 (00:20→17:16)
[2016-12-28] MEDS: INSULIN LISPRO 100 UNITS/ML SUBCUT SCH ×4 (00:21→18:19)
[2016-12-28] MEDS: IPRATROPIUM/ALBUTEROL 0.5-3(2.5)MG/3ML NEB HHN SCH ×6 (00:49→20:51)
[2016-12-28 06:10] LABS: BASOPHILS % 0.3 % (0.0-2.0); EOSINOPHILS % 0.5 % (0.0-5.0); HEMATOCRIT. 37.5 % (42.0-52.0); HEMOGLOBIN. 13.5 g/dL (14.0-18.0); LYMPHOCYTES % 13.7 % (20.0-50.0); MEAN CORPUSCULAR HEMOGLOBIN 34.4 pg (28.0-32.0); MEAN CORPUSCULAR VOLUME 95.9 fL (80.0-94.0); MEAN PLATELET VOLUME 9.8 fl (7.4-10.4); MONOCYTES % 7.4 % (2.0-8.0); NEUTROPHILS % 78.1 % (40.0-76.0); PLATELET 119 x1000/uL (130-400); RED BLOOD CELL COUNT 3.91 mill/uL (4.7-6.1); RED CELL DISTRIBUTION WIDTH 13.8 % (11.6-14.6)
[2016-12-28] MEDS: LACTULOSE 20G/30ML UDC PO SCH ×3 (06:22→22:26)
[2016-12-28] MEDS: SODIUM CHL 0.9% + KCL 20MEQ/L 1,000 ML IV SCH (06:22)
[2016-12-28] MEDS: DILTIAZEM HCL 30MG TABLET PO SCH (06:23)
[2016-12-28 06:36] LABS: CARBON DIOXIDE 28 mEq/L (21-32); CHLORIDE 102 mEq/L (98-107)
[2016-12-28 06:45] LABS: AMMONIA 61 uMol/L (<32)
[2016-12-28] MEDS: METOLAZONE 5MG TABLET PO SCH (07:11)
[2016-12-28 07:25] LABS: BG BASE EXCESS 4.9 mmol/L (-2.0-2.0); BG CARBOXYHEMOGLOBIN 1.1 % (0.5-1.5); BG DEOXYHEMOGLOBIN 5.6 % (0.0-5.0); BG HCO3 ACT 29.6 mmol/L (22.0-26.0); BG METHEMOGLOBIN 0.3 % (0.0-1.5); BG OXYGEN SATURATION 94.3 % (92.0-98.5); BG PCO2 44.2 mmHg (35.0-45.0); BG PH 7.444 (7.350-7.450); BG PO2 70.4 mmHg (75.0-100.0); BG SAMPLE SITE RIGHT BRACHIAL; BG TOTAL HEMOGLOBIN 13.6 g/dL (12.0-18.0); BG VENT MODE NASAL CANNULA
[2016-12-28] MEDS: FUROSEMIDE 40MG/4ML VIAL IVP SCH ×2 (07:43→17:16)
[2016-12-28] MEDS ORDERED: POTASSIUM CHLORIDE 20MEQ/PACKET PO SCH (07:45)
[2016-12-28] MEDS: MILRINONE 20MG-DEXT 5% PREMIX 100 ML IV SCH (08:50)
[2016-12-28] MEDS: AMIODARONE HCL 200 MG TABLET NG SCH ×2 (08:50→21:45)
[2016-12-28] MEDS: RISPERIDONE 1MG TABLET GT SCH ×2 (08:50→20:35)
[2016-12-28] MEDS: PANTOPRAZOLE SODIUM 40 MG/VIAL IV SCH ×2 (08:50→20:34)
[2016-12-28] MEDS: LISINOPRIL 2.5MG TABLET PO SCH (08:51)
[2016-12-28] MEDS: CARVEDILOL 3.125 MG TABLET PO SCH ×2 (08:51→20:35)
[2016-12-28] MEDS: INSULIN DETEMIR UD 100 UNITS/ML SYR SUBCUT SCH (09:08)
[2016-12-28] MEDS ORDERED: DIGOXIN 500MCG/2ML AMP IV NR (10:15)
[2016-12-28] MEDS: ENOXAPARIN 40MG/0.4ML SYR SUBCUT SCH (12:25)
[2016-12-28] MEDS: DILTIAZEM HCL 60MG TABLET PO SCH ×2 (14:51→22:26)
[2016-12-28] MEDS: DIGOXIN 125MCG TABLET PO SCH (17:16)
[2016-12-28] MEDS: GUAIFENESIN 600MG ER TABLET PO SCH (21:00)
[2016-12-29] VITALS (71 sets, daily range): BP systolic 102–157; BP diastolic 45–96
[2016-12-29] MEDS: SUCRALFATE 1 G/10 ML UDC PO SCH ×5 (00:40→23:49)
[2016-12-29] MEDS: METOCLOPRAMIDE 10MG/10 ML UDC NG SCH ×5 (00:40→23:49)
[2016-12-29] MEDS: INSULIN LISPRO 100 UNITS/ML SUBCUT SCH ×5 (00:41→23:48)
[2016-12-29] MEDS: IPRATROPIUM/ALBUTEROL 0.5-3(2.5)MG/3ML NEB HHN SCH ×6 (00:54→20:38)
[2016-12-29] MEDS: MILRINONE 20MG-DEXT 5% PREMIX 100 ML IV SCH (02:08)
[2016-12-29 05:21] LABS: AMMONIA 38 uMol/L (<32)
[2016-12-29 05:24] LABS: BASOPHILS % 0.5 % (0.0-2.0); EOSINOPHILS % 0.6 % (0.0-5.0); HEMATOCRIT. 39.3 % (42.0-52.0); HEMOGLOBIN. 14.1 g/dL (14.0-18.0); LYMPHOCYTES % 13.2 % (20.0-50.0); MEAN CORPUSCULAR HEMOGLOBIN 33.9 pg (28.0-32.0); MEAN CORPUSCULAR VOLUME 94.7 fL (80.0-94.0); MEAN PLATELET VOLUME 9.7 fl (7.4-10.4); MONOCYTES % 8.1 % (2.0-8.0); NEUTROPHILS % 77.6 % (40.0-76.0); PLATELET 140 x1000/uL (130-400); RED BLOOD CELL COUNT 4.16 mill/uL (4.7-6.1); RED CELL DISTRIBUTION WIDTH 13.6 % (11.6-14.6)
[2016-12-29] MEDS: BLOOD SUGAR DIAGNOSTIC STRIP TEST SCH ×4 (05:37→23:34)
[2016-12-29 06:07] LABS: CARBON DIOXIDE 33 mEq/L (21-32); CHLORIDE 96 mEq/L (98-107)
[2016-12-29] MEDS: LACTULOSE 20G/30ML UDC PO SCH ×3 (06:10→22:56)
[2016-12-29] MEDS: DILTIAZEM HCL 60MG TABLET PO SCH ×4 (07:04→23:49)
[2016-12-29] MEDS: METOLAZONE 5MG TABLET PO SCH (07:26)
[2016-12-29] MEDS: FUROSEMIDE 40MG/4ML VIAL IVP SCH (08:29)
[2016-12-29] MEDS: PANTOPRAZOLE SODIUM 40 MG/VIAL IV SCH ×2 (09:14→20:54)
[2016-12-29] MEDS: LISINOPRIL 2.5MG TABLET PO SCH (09:14)
[2016-12-29] MEDS: GUAIFENESIN 600MG ER TABLET PO SCH ×2 (09:15→20:54)
[2016-12-29] MEDS: AMIODARONE HCL 200 MG TABLET NG SCH (09:15)
[2016-12-29] MEDS: ENOXAPARIN 40MG/0.4ML SYR SUBCUT SCH (09:15)
[2016-12-29] MEDS: RISPERIDONE 1MG TABLET GT SCH ×2 (09:15→20:54)
[2016-12-29] MEDS: CARVEDILOL 3.125 MG TABLET PO SCH (09:15)
[2016-12-29] MEDS: INSULIN DETEMIR UD 100 UNITS/ML SYR SUBCUT SCH (10:05)
[2016-12-29] MEDS: POTASSIUM CHLORIDE 20MEQ/PACKET PO SCH (10:38)
[2016-12-29] MEDS: DIGOXIN 125MCG TABLET PO SCH (17:47)
[2016-12-29] MEDS: CARVEDILOL 6.25 MG TABLET PO SCH (20:55)
[2016-12-30] VITALS (25 sets, daily range): BP systolic 105–144; BP diastolic 57–97
[2016-12-30] MEDS: IPRATROPIUM/ALBUTEROL 0.5-3(2.5)MG/3ML NEB HHN SCH ×6 (00:30→20:16)
[2016-12-30 05:12] LABS: EOSINOPHILS % 0.8 % (0.0-5.0); HEMATOCRIT. 39.1 % (42.0-52.0); HEMOGLOBIN. 13.9 g/dL (14.0-18.0)
[2016-12-30 05:24] LABS: CHLORIDE 95 mEq/L (98-107)
[2016-12-30 05:29] LABS: CARBON DIOXIDE 34 mEq/L (21-32)
[2016-12-30] MEDS: METOCLOPRAMIDE 10MG/10 ML UDC NG SCH ×4 (05:30→23:23)
[2016-12-30] MEDS: SUCRALFATE 1 G/10 ML UDC PO SCH ×4 (05:30→23:23)
[2016-12-30] MEDS: DILTIAZEM HCL 60MG TABLET PO SCH ×4 (05:30→23:23)
[2016-12-30] MEDS: LACTULOSE 20G/30ML UDC PO SCH ×3 (05:30→21:41)
[2016-12-30 05:31] LABS: BASOPHILS % 0.4 % (0.0-2.0); LYMPHOCYTES % 12.2 % (20.0-50.0); MEAN CORPUSCULAR HEMOGLOBIN 33.7 pg (28.0-32.0); MEAN CORPUSCULAR VOLUME 94.6 fL (80.0-94.0); MONOCYTES % 8.6 % (2.0-8.0); PLATELET 147 x1000/uL (130-400); RED BLOOD CELL COUNT 4.13 mill/uL (4.7-6.1); RED CELL DISTRIBUTION WIDTH 13.5 % (11.6-14.6)
[2016-12-30] MEDS: INSULIN LISPRO 100 UNITS/ML SUBCUT SCH ×4 (05:31→23:32)
[2016-12-30] MEDS: BLOOD SUGAR DIAGNOSTIC STRIP TEST SCH ×4 (05:31→23:22)
[2016-12-30 05:32] LABS: AMMONIA 49 uMol/L (<32)
[2016-12-30] MEDS: ENOXAPARIN 40MG/0.4ML SYR SUBCUT SCH (09:01)
[2016-12-30] MEDS: PANTOPRAZOLE SODIUM 40 MG/VIAL IV SCH ×2 (09:02→21:41)
[2016-12-30] MEDS: POTASSIUM CHLORIDE 20MEQ/PACKET PO SCH (09:02)
[2016-12-30] MEDS: GUAIFENESIN 600MG ER TABLET PO SCH ×2 (09:02→21:41)
[2016-12-30] MEDS: LISINOPRIL 2.5MG TABLET PO SCH (09:02)
[2016-12-30] MEDS: RISPERIDONE 1MG TABLET GT SCH ×2 (09:03→21:41)
[2016-12-30] MEDS: CARVEDILOL 6.25 MG TABLET PO SCH ×2 (09:03→21:41)
[2016-12-30] MEDS: INSULIN DETEMIR UD 100 UNITS/ML SYR SUBCUT SCH (09:25)
[2016-12-30] MEDS: FUROSEMIDE 20MG TABLET PO SCH ×2 (10:35→21:40)
[2016-12-30] MEDS: DIGOXIN 125MCG TABLET PO SCH (17:41)
[2016-12-31] VITALS (10 sets, daily range): BP systolic 106–144; BP diastolic 54–88
[2016-12-31] MEDS: IPRATROPIUM/ALBUTEROL 0.5-3(2.5)MG/3ML NEB HHN SCH ×5 (00:13→19:56)
[2016-12-31] MEDS: BLOOD SUGAR DIAGNOSTIC STRIP TEST SCH ×3 (06:00→17:42)
[2016-12-31] MEDS: PANTOPRAZOLE SODIUM 40 MG/VIAL IV SCH ×2 (10:07→21:39)
[2016-12-31] MEDS: ENOXAPARIN 40MG/0.4ML SYR SUBCUT SCH (10:07)
[2016-12-31] MEDS: INSULIN DETEMIR UD 100 UNITS/ML SYR SUBCUT SCH (10:09)
[2016-12-31] MEDS: GUAIFENESIN 600MG ER TABLET PO SCH ×2 (10:23→21:39)
[2016-12-31] MEDS: FUROSEMIDE 20MG TABLET PO SCH ×2 (10:23→21:38)
[2016-12-31] MEDS: RISPERIDONE 1MG TABLET GT SCH ×2 (10:23→21:38)
[2016-12-31] MEDS: CARVEDILOL 6.25 MG TABLET PO SCH ×2 (10:23→21:40)
[2016-12-31] MEDS: POTASSIUM CHLORIDE 20MEQ/PACKET PO SCH (10:24)
[2016-12-31] MEDS: LISINOPRIL 2.5MG TABLET PO SCH (10:24)
[2016-12-31 13:17] LABS: BASOPHILS % 0.6 % (0.0-2.0); EOSINOPHILS % 0.8 % (0.0-5.0); HEMATOCRIT. 39.1 % (42.0-52.0); HEMOGLOBIN. 13.8 g/dL (14.0-18.0); LYMPHOCYTES % 11.6 % (20.0-50.0); MEAN CORPUSCULAR HEMOGLOBIN 33.4 pg (28.0-32.0); MEAN CORPUSCULAR VOLUME 94.8 fL (80.0-94.0); MEAN PLATELET VOLUME 9.5 fl (7.4-10.4); MONOCYTES % 7.6 % (2.0-8.0); NEUTROPHILS % 79.4 % (40.0-76.0); PLATELET 171 x1000/uL (130-400); RED BLOOD CELL COUNT 4.12 mill/uL (4.7-6.1); RED CELL DISTRIBUTION WIDTH 13.4 % (11.6-14.6)
[2016-12-31] MEDS: INSULIN LISPRO 100 UNITS/ML SUBCUT SCH ×2 (13:20→17:51)
[2016-12-31] MEDS: LACTULOSE 20G/30ML UDC PO SCH ×2 (13:28→21:39)
[2016-12-31] MEDS: SUCRALFATE 1 G/10 ML UDC PO SCH ×2 (13:29→17:49)
[2016-12-31] MEDS: METOCLOPRAMIDE 10MG/10 ML UDC NG SCH ×2 (13:30→17:49)
[2016-12-31] MEDS: DILTIAZEM HCL 60MG TABLET PO SCH ×2 (13:39→17:52)
[2016-12-31 13:44] LABS: CARBON DIOXIDE 33 mEq/L (21-32); CHLORIDE 93 mEq/L (98-107)
[2016-12-31] MEDS: DIGOXIN 125MCG TABLET PO SCH (17:50)
[2017-01-01] VITALS (10 sets, daily range): BP systolic 102–148; BP diastolic 47–77
[2017-01-01] MEDS: IPRATROPIUM/ALBUTEROL 0.5-3(2.5)MG/3ML NEB HHN SCH ×5 (00:20→15:42)
[2017-01-01] MEDS: SUCRALFATE 1 G/10 ML UDC PO SCH ×3 (00:31→13:07)
[2017-01-01] MEDS: METOCLOPRAMIDE 10MG/10 ML UDC NG SCH ×3 (00:32→13:07)
[2017-01-01] MEDS: BLOOD SUGAR DIAGNOSTIC STRIP TEST SCH ×3 (00:32→12:31)
[2017-01-01] MEDS: DILTIAZEM HCL 60MG TABLET PO SCH ×3 (00:32→13:07)
[2017-01-01] MEDS: INSULIN LISPRO 100 UNITS/ML SUBCUT SCH ×3 (00:46→13:11)
[2017-01-01] MEDS: LACTULOSE 20G/30ML UDC PO SCH ×2 (05:55→13:07)
[2017-01-01 06:03] LABS: BASOPHILS % 0.7 % (0.0-2.0); EOSINOPHILS % 1.9 % (0.0-5.0); HEMATOCRIT. 36.1 % (42.0-52.0); HEMOGLOBIN. 12.7 g/dL (14.0-18.0); LYMPHOCYTES % 18.1 % (20.0-50.0); MEAN CORPUSCULAR HEMOGLOBIN 33.1 pg (28.0-32.0); MEAN CORPUSCULAR VOLUME 93.8 fL (80.0-94.0); MEAN PLATELET VOLUME 9.6 fl (7.4-10.4); NEUTROPHILS % 69.3 % (40.0-76.0); PLATELET 179 x1000/uL (130-400); RED BLOOD CELL COUNT 3.85 mill/uL (4.7-6.1); RED CELL DISTRIBUTION WIDTH 13.4 % (11.6-14.6)
[2017-01-01 06:22] LABS: CARBON DIOXIDE 30 mEq/L (21-32); CHLORIDE 92 mEq/L (98-107)
[2017-01-01] MEDS: POTASSIUM CHLORIDE 20MEQ/PACKET PO SCH (10:19)
[2017-01-01] MEDS: PANTOPRAZOLE SODIUM 40 MG/VIAL IV SCH (10:20)
[2017-01-01] MEDS: LISINOPRIL 2.5MG TABLET PO SCH (10:20)
[2017-01-01] MEDS: ENOXAPARIN 40MG/0.4ML SYR SUBCUT SCH (10:20)
[2017-01-01] MEDS: FUROSEMIDE 20MG TABLET PO SCH (10:21)
[2017-01-01] MEDS: GUAIFENESIN 600MG ER TABLET PO SCH (10:21)
[2017-01-01] MEDS: RISPERIDONE 1MG TABLET GT SCH (10:21)
[2017-01-01] MEDS: CARVEDILOL 6.25 MG TABLET PO SCH (10:21)
[2017-01-01] MEDS: INSULIN DETEMIR UD 100 UNITS/ML SYR SUBCUT SCH (11:14)
== END 2017-01-01 16:40 | disposition home or self-care (01) | DRG 871 ==
LOC: ER 02:52 → ENRESERV 03:53 → EDBEDREQ 05:29 → EDBEDREQTM 05:30 → MICUNO 05:32 → EDBEDREQTM 05:33 → EDBEDREQ 05:33 → MICUNO 06:39 → 5EST 12-30 23:49
PROVIDERS: ADMIT Internal Medicine; ATTEND Internal Medicine
PROC: 5A1945Z Respiratory Ventilation, 24-96 Consecutive Hours (ICD-10-PCS; principal; 2016-12-24)
PROC: 0BH17EZ Insertion of Endotracheal Airway into Trachea, Via Natural or Artificial Opening (ICD-10-PCS; 2016-12-24)
PROC: 02HV33Z Insertion of Infusion Device into Superior Vena Cava, Percutaneous Approach (ICD-10-PCS; 2016-12-25)
PROC: B548ZZA Ultrasonography of Superior Vena Cava, Guidance (ICD-10-PCS; 2016-12-25)
DX: A41.9 Sepsis, unspecified organism (principal); J96.01 Acute respiratory failure with hypoxia; I50.23 Acute on chronic systolic (congestive) heart failure; J18.9 Pneumonia, unspecified organism; E87.2 Acidosis; E72.20 Disorder of urea cycle metabolism, unspecified; B17.10 Acute hepatitis C without hepatic coma; I27.20 Pulmonary hypertension, unspecified; I11.0 Hypertensive heart disease with heart failure; I42.0 Dilated cardiomyopathy; I48.4 Atypical atrial flutter; K92.2 Gastrointestinal hemorrhage, unspecified; B18.2 Chronic viral hepatitis C; J44.9 Chronic obstructive pulmonary disease, unspecified; E11.9 Type 2 diabetes mellitus without complications; K29.60 Other gastritis without bleeding; E78.1 Pure hyperglyceridemia; E78.5 Hyperlipidemia, unspecified; I25.10 Atherosclerotic heart disease of native coronary artery without angina pectoris; I25.5 Ischemic cardiomyopathy; I48.0 Paroxysmal atrial fibrillation; F10.20 Alcohol dependence, uncomplicated; K76.0 Fatty (change of) liver, not elsewhere classified; K72.90 Hepatic failure, unspecified without coma; Z79.899 Other long term (current) drug therapy; Z95.1 Presence of aortocoronary bypass graft; Z89.021 Acquired absence of right finger(s)
CPT/HCPCS: 31500; 36415; 36569; 36600; 51702; 71010; 74000; 76700; 76937; 80048; 80053; 80162; 80305; 81001; 82140; 82375; 82805; 82962; 83605; 83735; 83880; 84443; 84478; 84484; 85014; 85018; 85025; 85027; 85610; 86703; 86705; 86709; 86803; 87040; 87070; 87086; 87340; 92610; 93005; 93306; 93970; 94002; 94003; 94640; 94664; 96365; 96375; 97162; 97167; 99291; C1725; C9113; J0282; J0330; J1160; J1650; J1815; J1940; J1956; J2260; J2543; J2704; J3010; J3480; J3490; J7060; J7620; J8597; A4315

== ENCOUNTER 2017-06-30 20:08 | Inpatient (IN) | payer OTHER, MEDICAID ==
[~2017-06-30] VITALS: Ht 165.1 cm; Wt 81.6 kg
[2017-06-30] MEDS ORDERED: ONDANSETRON HCL 4MG/2ML VIAL IV ONE (20:45)
[2017-06-30] MEDS ORDERED: NITROGLYCERIN 0.1MG/HR PATCH TOP ONE (20:45)
[2017-06-30] MEDS ORDERED: NITROGLYCERIN 0.4MG TABLET SL SL ONE (20:45)
[2017-06-30 20:54] LABS: BASOPHILS % 0.7 % (0.0-2.0); EOSINOPHILS % 1.5 % (0.0-5.0); HEMATOCRIT. 46.8 % (42.0-52.0); HEMOGLOBIN. 16.2 g/dL (14.0-18.0); LYMPHOCYTES % 36.5 % (20.0-50.0); MEAN CORPUSCULAR HEMOGLOBIN 34.4 pg (28.0-32.0); MEAN CORPUSCULAR VOLUME 99.6 fL (80.0-94.0); MEAN PLATELET VOLUME 9.3 fl (7.4-10.4); NEUTROPHILS % 57.3 % (40.0-76.0); PLATELET 213 x1000/uL (130-400); RED CELL DISTRIBUTION WIDTH 14.9 % (11.6-14.6)
[2017-06-30 20:55] LABS: CHLORIDE 103 mEq/L (98-107)
[2017-06-30 20:56] LABS: INR 1.1
[2017-06-30] MEDS ORDERED: ASPIRIN 81MG TABLET PO ONE (21:15)
[2017-06-30] MEDS ORDERED: FUROSEMIDE 40MG/4ML VIAL IV ONE (21:15)
[2017-06-30] MEDS ORDERED: NITROGLYCERIN 50MG PREMIX 250 ML IV ONE (21:30)
[2017-06-30] MEDS ORDERED: MAGNESIUM/ALUMINUM HYDROXIDE/SIMETHICONE 30ML UDC PO PRN (22:30)
[2017-06-30] MEDS ORDERED: DOCUSATE SODIUM 100MG CAPSULE PO PRN (22:30)
[2017-06-30] MEDS ORDERED: LORAZEPAM 0.5MG TABLET PO PRN (22:30)
[2017-06-30] MEDS ORDERED: ONDANSETRON HCL 4MG/2ML VIAL IV PRN (22:30)
[2017-06-30] MEDS ORDERED: CLONIDINE 0.1MG TABLET PO PRN (22:30)
[2017-06-30] MEDS ORDERED: IPRATROPIUM/ALBUTEROL 0.5-3(2.5)MG/3ML NEB INH PRN (22:30)
[2017-06-30] MEDS ORDERED: ACETAMINOPHEN 325MG TABLET PO PRN (22:30)
[2017-06-30] MEDS ORDERED: ENOXAPARIN 30MG/0.3ML SYR SUBCUT SCH (23:15)
[2017-06-30 23:25] VITALS: BP 97/60
[2017-06-30 23:30] VITALS: BP 95/60
[2017-06-30] MEDS ORDERED: RIVA20TA PO (23:59)
[2017-07-01] VITALS (89 sets, daily range): BP systolic 59–165; BP diastolic 24–113
[2017-07-01] MEDS ORDERED: VERA240C3 PO
[2017-07-01] MEDS ORDERED: DIPH25TA23 PO (00:01)
[2017-07-01 00:18] LABS: CHLORIDE 105 mEq/L (98-107)
[2017-07-01] MEDS ORDERED: ZOSYN (PIPERACILLIN/TAZOBACTAM) XX SCH (00:45)
[2017-07-01 01:34] LABS: BG BASE EXCESS -1.7 mmol/L (-2.0-2.0); BG BILEVEL POS AIRWAY PRESSURE 15/5; BG CARBOXYHEMOGLOBIN 1.3 % (0.5-1.5); BG DEOXYHEMOGLOBIN 1.6 % (0.0-5.0); BG FRACTION INSPIRED OXYGEN 50; BG HCO3 ACT 22.3 mmol/L (22.0-26.0); BG METHEMOGLOBIN 0.1 % (0.0-1.5); BG OXYGEN SATURATION 98.4 % (92.0-98.5); BG PCO2 35.7 mmHg (35.0-45.0); BG PH 7.413 (7.350-7.450); BG PO2 126.4 mmHg (75.0-100.0); BG SAMPLE SITE RIGHT BRACHIAL; BG TOTAL HEMOGLOBIN 14.5 g/dL (12.0-18.0); BG VENT MODE MASK - BIPAP
[2017-07-01] MEDS: PIPERACILLIN/TAZ 3.375G PREMIX 50 ML IV SCH ×4 (03:23→21:44)
[2017-07-01 05:51] LABS: BASOPHILS % 0.4 % (0.0-2.0); EOSINOPHILS % 0.2 % (0.0-5.0); HEMATOCRIT. 40.3 % (42.0-52.0); HEMOGLOBIN. 14.1 g/dL (14.0-18.0); LYMPHOCYTES % 12.9 % (20.0-50.0); MEAN CORPUSCULAR HEMOGLOBIN 34.5 pg (28.0-32.0); MEAN CORPUSCULAR VOLUME 98.7 fL (80.0-94.0); MEAN PLATELET VOLUME 9.4 fl (7.4-10.4); NEUTROPHILS % 81.5 % (40.0-76.0); PLATELET 232 x1000/uL (130-400); RED BLOOD CELL COUNT 4.09 mill/uL (4.7-6.1); RED CELL DISTRIBUTION WIDTH 14.7 % (11.6-14.6)
[2017-07-01 06:32] LABS: LDL CHOLESTEROL 93 mg/dL (5-100)
[2017-07-01 06:33] LABS: CREATINE KINASE 37 IU/L (39-308)
[2017-07-01 06:34] LABS: HDL CHOLESTEROL 35 mg/dL (40-59)
[2017-07-01 06:35] LABS: CREATINE KINASE MB FRACTION 2.2 ng/mL (0.5-3.6)
[2017-07-01] MEDS: BLOOD SUGAR DIAGNOSTIC STRIP TEST SCH ×4 (06:48→21:45)
[2017-07-01] MEDS: INSULIN LISPRO 100 UNITS/ML SUBCUT SCH ×4 (06:48→21:00)
[2017-07-01] MEDS ORDERED: DEXTROSE 50% WATER 50ML SYRINGE IV PRN (07:00)
[2017-07-01] MEDS ORDERED: ATROPINE SULFATE 1MG/10ML SYR ONE (07:14)
[2017-07-01] MEDS ORDERED: ATROPINE SULFATE 1MG/ML VIAL IV PRN (07:15)
[2017-07-01] MEDS ORDERED: ATROPINE SULFATE 1MG/ML VIAL IV ONE (07:15)
[2017-07-01] MEDS ORDERED: DOPAMINE 400MG PREMIX 250 ML IV PRN ×2 (07:30→08:11)
[2017-07-01] MEDS ORDERED: DOPAMINE 400MG PREMIX 250 ML IV ONE (07:30)
[2017-07-01] MEDS ORDERED: ASPIRIN 81MG EC TABLET PO SCH (09:00)
[2017-07-01] MEDS ORDERED: LIDOCAINE HCL/PF 1% 10 MG/ML 5ML VIAL ONE (09:29)
[2017-07-01] MEDS ORDERED: SODIUM BICARBONATE 4% (2.4MEQ) 5ML VIAL IV ONE (09:30)
[2017-07-01] MEDS: PANTOPRAZOLE SODIUM 40 MG/VIAL IV SCH ×2 (12:26→21:44)
[2017-07-01 15:58] LABS: CREATINE KINASE 33 IU/L (39-308)
[2017-07-01 15:59] LABS: CREATINE KINASE MB FRACTION 2.6 ng/mL (0.5-3.6)
[2017-07-01] MEDS ORDERED: RIVAROXABAN 20 MG TABLET PO SCH (17:00)
[2017-07-01] MEDS: FUROSEMIDE 40MG/4ML VIAL IV SCH ×2 (17:00→18:21)
[2017-07-01 20:44] LABS: CLARITY URINE CLEAR (CLEAR); COLOR URINE YELLOW (YELLOW); KETONES URINE NEGATIVE (NEGATIVE); LEUKOCYTE ESTERASE URINE NEGATIVE (NEGATIVE); NITRITE URINE NEGATIVE (NEGATIVE); OCCULT BLOOD URINE NEGATIVE (NEGATIVE); PROTEIN URINE NEGATIVE (NEGATIVE); SPECIFIC GRAVITY URINE 1.012 (1.005-1.030); UROBILINOGEN URINE 0.2 E.U./dL (0.2-1.0)
[2017-07-01 20:56] LABS: *BENZODIAZEPINES SCREEN URINE NEGATIVE (NEGATIVE)
[2017-07-01 20:57] LABS: *COCAINE SCREEN URINE NEGATIVE (NEGATIVE); OPIATES URINE SCREEN NEGATIVE (NEGATIVE); PHENCYCLIDINE URINE SCREEN NEGATIVE (NEGATIVE)
[2017-07-01 20:58] LABS: *AMPHETAMINES SCREEN URINE NEGATIVE (NEGATIVE); *BARBITURATES SCREEN URINE NEGATIVE (NEGATIVE); CANNABINOID URINE SCREEN NEGATIVE (NEGATIVE)
[2017-07-01 21:00] LABS: METHADONE URINE SCREEN NEGATIVE (NEGATIVE)
[2017-07-01] MEDS: ATORVASTATIN CALCIUM 40MG TABLET PO SCH (21:44)
[2017-07-01] MEDS: AMIODARONE HCL 200 MG TABLET PO SCH (21:44)
[2017-07-02] VITALS (47 sets, daily range): BP systolic 105–156; BP diastolic 26–102
[2017-07-02] MEDS: PIPERACILLIN/TAZ 3.375G PREMIX 50 ML IV SCH ×4 (05:15→21:24)
[2017-07-02 05:42] LABS: BASOPHILS % 0.3 % (0.0-2.0); EOSINOPHILS % 0.3 % (0.0-5.0); HEMATOCRIT. 35.4 % (42.0-52.0); HEMOGLOBIN. 12.7 g/dL (14.0-18.0); MEAN CORPUSCULAR HEMOGLOBIN 34.5 pg (28.0-32.0); MEAN CORPUSCULAR VOLUME 96.4 fL (80.0-94.0); MEAN PLATELET VOLUME 8.9 fl (7.4-10.4); MONOCYTES % 5.3 % (2.0-8.0); NEUTROPHILS % 76.1 % (40.0-76.0); PLATELET 166 x1000/uL (130-400); RED BLOOD CELL COUNT 3.67 mill/uL (4.7-6.1); RED CELL DISTRIBUTION WIDTH 14.5 % (11.6-14.6)
[2017-07-02 05:49] LABS: CHLORIDE 105 mEq/L (98-107)
[2017-07-02] MEDS: BLOOD SUGAR DIAGNOSTIC STRIP TEST SCH ×4 (06:44→21:00)
[2017-07-02] MEDS: INSULIN LISPRO 100 UNITS/ML SUBCUT SCH ×4 (06:45→21:33)
[2017-07-02] MEDS: FUROSEMIDE 40MG/4ML VIAL IV SCH ×2 (08:30→16:40)
[2017-07-02] MEDS: AMIODARONE HCL 200 MG TABLET PO SCH ×2 (08:30→21:23)
[2017-07-02] MEDS: PANTOPRAZOLE SODIUM 40 MG/VIAL IV SCH ×2 (08:30→21:23)
[2017-07-02] MEDS: LOSARTAN POTASSIUM 25 MG TABLET PO SCH (15:35)
[2017-07-02] MEDS: IPRATROPIUM/ALBUTEROL 0.5-3(2.5)MG/3ML NEB HHN SCH ×2 (16:52→21:46)
[2017-07-02] MEDS ORDERED: RIVAROXABAN 10 MG TABLET PO SCH (17:00)
[2017-07-02] MEDS: ATORVASTATIN CALCIUM 40MG TABLET PO SCH (21:23)
[2017-07-03] VITALS: BP 113/48
[2017-07-03] MEDS: IPRATROPIUM/ALBUTEROL 0.5-3(2.5)MG/3ML NEB HHN SCH ×4 (01:08→20:48)
[2017-07-03] MEDS: PIPERACILLIN/TAZ 3.375G PREMIX 50 ML IV SCH ×4 (02:44→21:20)
[2017-07-03] MEDS: HYDROCODONE/ACETAMINOPHEN 5/325MG TABLET PO PRN ×3 (03:18→21:31)
[2017-07-03 04:00] VITALS: BP 108/48
[2017-07-03] MEDS: BLOOD SUGAR DIAGNOSTIC STRIP TEST SCH ×4 (06:13→21:00)
[2017-07-03] MEDS: INSULIN LISPRO 100 UNITS/ML SUBCUT SCH ×4 (06:13→21:30)
[2017-07-03 07:05] LABS: BASOPHILS % 0.3 % (0.0-2.0); EOSINOPHILS % 0.7 % (0.0-5.0); HEMATOCRIT. 35.6 % (42.0-52.0); HEMOGLOBIN. 12.6 g/dL (14.0-18.0); LYMPHOCYTES % 18.7 % (20.0-50.0); MEAN CORPUSCULAR HEMOGLOBIN 34.2 pg (28.0-32.0); MEAN CORPUSCULAR VOLUME 96.6 fL (80.0-94.0); MEAN PLATELET VOLUME 8.7 fl (7.4-10.4); MONOCYTES % 6.4 % (2.0-8.0); NEUTROPHILS % 73.9 % (40.0-76.0); PLATELET 153 x1000/uL (130-400); RED BLOOD CELL COUNT 3.69 mill/uL (4.7-6.1); RED CELL DISTRIBUTION WIDTH 14.2 % (11.6-14.6)
[2017-07-03 07:42] LABS: CHLORIDE 99 mEq/L (98-107)
[2017-07-03 08:07] VITALS: BP 117/42
[2017-07-03] MEDS: LOSARTAN POTASSIUM 25 MG TABLET PO SCH (08:36)
[2017-07-03] MEDS: AMIODARONE HCL 200 MG TABLET PO SCH ×2 (08:36→21:20)
[2017-07-03] MEDS: FUROSEMIDE 40MG/4ML VIAL IV SCH ×2 (08:36→16:11)
[2017-07-03] MEDS: PANTOPRAZOLE SODIUM 40 MG/VIAL IV SCH ×2 (08:36→21:20)
[2017-07-03 12:08] VITALS: BP 121/49
[2017-07-03 16:03] VITALS: BP 127/49
[2017-07-03 19:40] VITALS: BP 123/49
[2017-07-03] MEDS: ATORVASTATIN CALCIUM 40MG TABLET PO SCH (21:20)
[2017-07-04] VITALS (7 sets, daily range): BP systolic 88–110; BP diastolic 53–66
[2017-07-04] MEDS: IPRATROPIUM/ALBUTEROL 0.5-3(2.5)MG/3ML NEB HHN SCH ×2 (01:12→08:08)
[2017-07-04] MEDS: PIPERACILLIN/TAZ 3.375G PREMIX 50 ML IV SCH ×4 (02:06→21:23)
[2017-07-04] MEDS: BLOOD SUGAR DIAGNOSTIC STRIP TEST SCH ×4 (06:41→21:00)
[2017-07-04] MEDS: INSULIN LISPRO 100 UNITS/ML SUBCUT SCH ×4 (06:41→21:55)
[2017-07-04 07:24] LABS: CHLORIDE 99 mEq/L (98-107)
[2017-07-04 07:44] LABS: BASOPHILS % 0.5 % (0.0-2.0); EOSINOPHILS % 0.7 % (0.0-5.0); LYMPHOCYTES % 22.9 % (20.0-50.0); MEAN CORPUSCULAR HEMOGLOBIN 34.6 pg (28.0-32.0); MEAN CORPUSCULAR VOLUME 96.1 fL (80.0-94.0); NEUTROPHILS % 69.9 % (40.0-76.0); PLATELET 175 x1000/uL (130-400); RED BLOOD CELL COUNT 4.06 mill/uL (4.7-6.1)
[2017-07-04] MEDS: LOSARTAN POTASSIUM 25 MG TABLET PO SCH (09:00)
[2017-07-04] MEDS: FUROSEMIDE 40MG/4ML VIAL IV SCH (09:12)
[2017-07-04] MEDS: PANTOPRAZOLE SODIUM 40 MG/VIAL IV SCH ×2 (09:12→21:23)
[2017-07-04] MEDS: AMIODARONE HCL 200 MG TABLET PO SCH ×2 (09:12→21:23)
[2017-07-04] MEDS ORDERED: VERAPAMIL HCL 2.5 MG/1 ML 2ML VIAL IV PRN (12:30)
[2017-07-04] MEDS ORDERED: DIGOXIN 500MCG/2ML AMP IV SCH (12:45)
[2017-07-04] MEDS ORDERED: IPRATROPIUM/ALBUTEROL 0.5-3(2.5)MG/3ML NEB HHN PRN (12:45)
[2017-07-04] MEDS ORDERED: SODIUM CHLORIDE 0.9% 200 ML IV ONE (12:45)
[2017-07-04] MEDS: DILTIAZEM HCL 60MG TABLET PO SCH ×2 (16:48→23:58)
[2017-07-04] MEDS ORDERED: SORBITOL 70% SOLN 30ML PO NR ×2 (17:00→22:00)
[2017-07-04] MEDS: ATORVASTATIN CALCIUM 40MG TABLET PO SCH (21:23)
[2017-07-04 22:32] LABS: HEMATOCRIT 43.6 % (42.0-52.0); HEMOGLOBIN 15.4 g/dL (14.0-18.0)
[2017-07-05] VITALS: BP 114/86
[2017-07-05] MEDS: PIPERACILLIN/TAZ 3.375G PREMIX 50 ML IV SCH ×4 (02:19→20:59)
[2017-07-05 05:00] VITALS: BP 136/81
[2017-07-05] MEDS: FUROSEMIDE 20MG TABLET PO SCH ×2 (05:32→18:00)
[2017-07-05] MEDS: DILTIAZEM HCL 60MG TABLET PO SCH ×3 (05:38→18:00)
[2017-07-05 05:46] LABS: INR 1.1; PARTIAL THROMBOPLASTIN TIME 24.2 sec (23.4-31.0); PROTHROMBIN TIME 11.3 sec (9.4-11.6)
[2017-07-05 05:54] LABS: BASOPHILS % 0.7 % (0.0-2.0); EOSINOPHILS % 0.9 % (0.0-5.0); HEMATOCRIT. 40.4 % (42.0-52.0); HEMOGLOBIN. 14.4 g/dL (14.0-18.0); LYMPHOCYTES % 22.8 % (20.0-50.0); MEAN CORPUSCULAR VOLUME 95.8 fL (80.0-94.0); MEAN PLATELET VOLUME 9.2 fl (7.4-10.4); MONOCYTES % 8.2 % (2.0-8.0); NEUTROPHILS % 67.4 % (40.0-76.0); PLATELET 179 x1000/uL (130-400); RED BLOOD CELL COUNT 4.22 mill/uL (4.7-6.1); RED CELL DISTRIBUTION WIDTH 14.1 % (11.6-14.6)
[2017-07-05] MEDS ORDERED: SORBITOL 70% SOLN 30ML PO NR (06:00)
[2017-07-05] MEDS: BLOOD SUGAR DIAGNOSTIC STRIP TEST SCH ×4 (06:26→20:59)
[2017-07-05] MEDS: INSULIN LISPRO 100 UNITS/ML SUBCUT SCH ×4 (06:26→21:16)
[2017-07-05 07:23] LABS: CHLORIDE 99 mEq/L (98-107)
[2017-07-05 07:44] LABS: TOTAL IRON BINDING CAPACITY 315 ug/dL (250-450)
[2017-07-05] MEDS: PANTOPRAZOLE SODIUM 40 MG/VIAL IV SCH ×2 (08:24→20:59)
[2017-07-05] MEDS: LOSARTAN POTASSIUM 25 MG TABLET PO SCH (08:24)
[2017-07-05] MEDS: AMIODARONE HCL 200 MG TABLET PO SCH ×2 (08:25→20:59)
[2017-07-05 08:26] VITALS: BP 118/89
[2017-07-05 10:33] LABS: HEPATITIS B SURFACE ANTIGEN NEGATIVE
[2017-07-05 10:58] LABS: HEPATITIS B CORE AB IGM NEGATIVE
[2017-07-05 10:59] LABS: HEPATITIS A AB IGM NEGATIVE (NEGATIVE)
[2017-07-05 12:24] VITALS: BP 118/86
[2017-07-05] MEDS ORDERED: FENTANYL CITRATE/PF 50MCG/ML 2ML VIAL ONE (17:46)
[2017-07-05] MEDS ORDERED: MIDAZOLAM HCL 5 MG/5 ML VIAL ONE (17:47)
[2017-07-05] MEDS ORDERED: SIMETHICONE 40 MG/0.6 ML 30ML ONE (18:01)
[2017-07-05 18:34] LABS: FOLIC ACID (FOLATE) SERUM 13.9 ng/mL (>5.38)
[2017-07-05 20:06] VITALS: BP 126/48
[2017-07-05] MEDS: ATORVASTATIN CALCIUM 40MG TABLET PO SCH (20:59)
[2017-07-06 00:08] VITALS: BP 143/46
[2017-07-06] MEDS: DILTIAZEM HCL 60MG TABLET PO SCH ×4 (00:14→18:00)
[2017-07-06] MEDS: PIPERACILLIN/TAZ 3.375G PREMIX 50 ML IV SCH ×2 (03:01→08:52)
[2017-07-06 04:28] VITALS: BP 116/62
[2017-07-06 06:11] LABS: BASOPHILS % 0.4 % (0.0-2.0); EOSINOPHILS % 1.6 % (0.0-5.0); HEMATOCRIT. 39.9 % (42.0-52.0); HEMOGLOBIN. 14.3 g/dL (14.0-18.0); LYMPHOCYTES % 26.7 % (20.0-50.0); MEAN CORPUSCULAR HEMOGLOBIN 34.4 pg (28.0-32.0); MEAN CORPUSCULAR VOLUME 96.1 fL (80.0-94.0); MEAN PLATELET VOLUME 9.5 fl (7.4-10.4); MONOCYTES % 6.7 % (2.0-8.0); NEUTROPHILS % 64.6 % (40.0-76.0); PLATELET 180 x1000/uL (130-400); RED BLOOD CELL COUNT 4.15 mill/uL (4.7-6.1)
[2017-07-06] MEDS: FUROSEMIDE 20MG TABLET PO SCH (06:12)
[2017-07-06] MEDS: BLOOD SUGAR DIAGNOSTIC STRIP TEST SCH ×3 (06:12→17:10)
[2017-07-06] MEDS: INSULIN LISPRO 100 UNITS/ML SUBCUT SCH ×3 (06:15→17:40)
[2017-07-06 06:58] LABS: PHOSPHORUS 3.3 mg/dL (2.5-4.9)
[2017-07-06 08:00] VITALS: BP 125/59
[2017-07-06] MEDS: AMIODARONE HCL 200 MG TABLET PO SCH (08:52)
[2017-07-06] MEDS: LOSARTAN POTASSIUM 25 MG TABLET PO SCH (08:52)
[2017-07-06] MEDS: PANTOPRAZOLE SODIUM 40 MG/VIAL IV SCH (08:52)
[2017-07-06] MEDS ORDERED: POTASSIUM CHLORIDE 20MEQ TABLET SR PO SCH (10:00)
[2017-07-06] MEDS ORDERED: POTA20TA82 PO (15:07)
[2017-07-06] MEDS ORDERED: AMI2 PO (15:07)
[2017-07-06] MEDS ORDERED: DILT60TA35 PO (15:07)
[2017-07-06] MEDS ORDERED: LIP40 PO (15:07)
[2017-07-06] MEDS ORDERED: ASPI-1158 PO (15:07)
[2017-07-06] MEDS ORDERED: LOSA25TA3 PO (15:07)
[2017-07-06] MEDS ORDERED: PANT40VI PO (15:07)
[2017-07-06] MEDS ORDERED: FURO20TA4 PO (15:07)
[2017-07-06] MEDS ORDERED: PANTOPRAZOLE 40MG DR TABLET PO SCH (15:08)
[2017-07-06 16:25] VITALS: BP 106/75
[2017-07-07] MEDS ORDERED: POTASSIUM CHLORIDE 20MEQ TABLET SR PO SCH (09:00)
== END 2017-07-06 18:10 | disposition home or self-care (01) | DRG 291 ==
LOC: ER 20:10 → EDBEDREQ 21:24 → EDBEDREQTM 21:24 → EDBEDREQSVC 21:24 → ENRESERV 21:44 → MICUSO 23:08 → 8WST 07-02 19:10
PROVIDERS: ADMIT Internal Medicine; ATTEND Internal Medicine
PROC: 5A09357 Assistance with Respiratory Ventilation, Less than 24 Consecutive Hours, Continuous Positive Airway Pressure (ICD-10-PCS; 2017-06-30)
PROC: 02HV33Z Insertion of Infusion Device into Superior Vena Cava, Percutaneous Approach (ICD-10-PCS; 2017-07-01)
PROC: B548ZZA Ultrasonography of Superior Vena Cava, Guidance (ICD-10-PCS; 2017-07-01)
PROC: 0DJD8ZZ Inspection of Lower Intestinal Tract, Via Natural or Artificial Opening Endoscopic (ICD-10-PCS; principal; 2017-07-05 19:30)
DX: I11.0 Hypertensive heart disease with heart failure (principal); J96.01 Acute respiratory failure with hypoxia; I95.9 Hypotension, unspecified; E11.51 Type 2 diabetes mellitus with diabetic peripheral angiopathy without gangrene; I48.92 Unspecified atrial flutter; I48.0 Paroxysmal atrial fibrillation; J44.9 Chronic obstructive pulmonary disease, unspecified; I48.2 Chronic atrial fibrillation; K92.1 Melena; I50.23 Acute on chronic systolic (congestive) heart failure; I25.5 Ischemic cardiomyopathy; E78.5 Hyperlipidemia, unspecified; B19.20 Unspecified viral hepatitis C without hepatic coma; R00.1 Bradycardia, unspecified; B18.2 Chronic viral hepatitis C; F17.210 Nicotine dependence, cigarettes, uncomplicated; K57.30 Diverticulosis of large intestine without perforation or abscess without bleeding; K64.8 Other hemorrhoids; I25.10 Atherosclerotic heart disease of native coronary artery without angina pectoris; D53.9 Nutritional anemia, unspecified; Z60.2 Problems related to living alone; F10.10 Alcohol abuse, uncomplicated; K63.5 Polyp of colon; Z79.01 Long term (current) use of anticoagulants; Z95.1 Presence of aortocoronary bypass graft; Z79.899 Other long term (current) drug therapy; Z82.49 Family history of ischemic heart disease and other diseases of the circulatory system; Z71.6 Tobacco abuse counseling
CPT/HCPCS: 36415; 36569; 36600; 71045; 73630; 76700; 76937; 78278; 80048; 80053; 80061; 80076; 80162; 80305; 81003; 82270; 82375; 82550; 82553; 82607; 82728; 82746; 82805; 82962; 83540; 83550; 83735; 83880; 84100; 84443; 84484; 85014; 85018; 85025; 85379; 85610; 85730; 86705; 86709; 86803; 87040; 87086; 87340; 93005; 93306; 93922; 93970; 94640; 94660; 99291; A9560; C1725; C1887; C9113; J0461; J1160; J1265; J1650; J1815; J1940; J2250; J2405; J2543; J3010; J3490; J7040; J7050; J7620

== ENCOUNTER 2017-12-09 18:41 | Inpatient (IN) | payer OTHER, MEDICAID ==
[~2017-12-09] VITALS: Ht 167.6 cm; Wt 78.0 kg
[~2017-12-09 18:41] MED LIST changes: +ASPI-1158 PO; -COR6 PO; +DILT60TA35 PO; -Digoxin PO; -FURO-152 PO; +FURO20TA4 PO; +LOSA25TA3 PO; -Lisinopril PO; +PANT40VI PO; -POTA10CA42 PO; +POTA20TA82 PO
[2017-12-09] MEDS ORDERED: FUROSEMIDE 40MG/4ML VIAL IV ONE (19:00)
[2017-12-09] MEDS ORDERED: ASPIRIN 81MG TABLET PO ONE (19:00)
[2017-12-09 19:45] LABS: BASOPHILS % 0.7 % (0.0-2.0); EOSINOPHILS % 1.1 % (0.0-5.0); HEMATOCRIT. 48.1 % (42.0-52.0); HEMOGLOBIN. 16.4 g/dL (14.0-18.0); LYMPHOCYTES % 36.7 % (20.0-50.0); MEAN CORPUSCULAR HEMOGLOBIN 34.3 pg (28.0-32.0); MEAN CORPUSCULAR VOLUME 100.8 fL (80.0-94.0); MONOCYTES % 4.3 % (2.0-8.0); NEUTROPHILS % 57.2 % (40.0-76.0); PLATELET 179 x1000/uL (130-400); RED BLOOD CELL COUNT 4.77 mill/uL (4.7-6.1); RED CELL DISTRIBUTION WIDTH 14.7 % (11.6-14.6)
[2017-12-09 19:46] LABS: CHLORIDE 103 mEq/L (98-107)
[2017-12-09 19:50] LABS: BG BASE EXCESS -8.7 mmol/L (-2.0-2.0); BG BILEVEL POS AIRWAY PRESSURE 18/5; BG DEOXYHEMOGLOBIN 5.2 % (0.0-5.0); BG FRACTION INSPIRED OXYGEN 80; BG HCO3 ACT 21.7 mmol/L (22.0-26.0); BG METHEMOGLOBIN 0.4 % (0.0-1.5); BG OXYGEN SATURATION 94.6 % (92.0-98.5); BG OXYHEMOGLOBIN 91.4 % (94.0-97.0); BG PCO2 65.2 mmHg (35.0-45.0); BG PH 7.141 (7.350-7.450); BG SAMPLE SITE LEFT RADIAL; BG TOTAL HEMOGLOBIN 17.5 g/dL (12.0-18.0); BG VENT MODE MASK - BIPAP; BG VENT RATE 16 set
[2017-12-09 19:52] LABS: INR 1.1; PARTIAL THROMBOPLASTIN TIME 25.7 sec (23.4-31.0); PROTHROMBIN TIME 10.7 sec (9.1-11.1)
[2017-12-09 19:53] LABS: ETHANOL BLOOD < 10 mg/dL
[2017-12-09] MEDS ORDERED: LEVOFLOXACIN 750MG PREMIX 150 ML IV ONE (20:00)
[2017-12-09 21:18] LABS: BG BILEVEL POS AIRWAY PRESSURE 18/5; BG CARBOXYHEMOGLOBIN 2.4 % (0.5-1.5); BG DEOXYHEMOGLOBIN 4.1 % (0.0-5.0); BG FRACTION INSPIRED OXYGEN 80; BG HCO3 ACT 21.1 mmol/L (22.0-26.0); BG METHEMOGLOBIN 0.4 % (0.0-1.5); BG OXYGEN SATURATION 95.8 % (92.0-98.5); BG OXYHEMOGLOBIN 93.1 % (94.0-97.0); BG PCO2 56.4 mmHg (35.0-45.0); BG PH 7.191 (7.350-7.450); BG PO2 96.2 mmHg (75.0-100.0); BG SAMPLE SITE LEFT RADIAL; BG TOTAL HEMOGLOBIN 17.7 g/dL (12.0-18.0); BG VENT MODE MASK - BIPAP; BG VENT RATE 16 set
[2017-12-10] VITALS (14 sets, daily range): BP systolic 129–163; BP diastolic 69–114
[2017-12-10] MEDS ORDERED: DOCUSATE SODIUM 100MG CAPSULE PO PRN (00:15)
[2017-12-10] MEDS ORDERED: ACETAMINOPHEN 325MG TABLET PO PRN (00:15)
[2017-12-10] MEDS ORDERED: IPRATROPIUM/ALBUTEROL 0.5-3(2.5)MG/3ML NEB INH PRN (00:15)
[2017-12-10] MEDS ORDERED: ACETAMINOPHEN 650MG SUPP PR PRN (00:15)
[2017-12-10] MEDS ORDERED: GUAIFENESIN 200MG/10ML SUGAR FREE UDC PO PRN (00:15)
[2017-12-10] MEDS ORDERED: ONDANSETRON HCL 4MG/2ML INJ IV PRN (00:15)
[2017-12-10] MEDS ORDERED: HYDROCODONE/ACETAMINOPHEN 10/325MG TABLET PO PRN (00:15)
[2017-12-10] MEDS ORDERED: ACETAMINOPHEN 650MG/20.3ML UDC GT PRN (00:15)
[2017-12-10] MEDS ORDERED: HYDROCODONE/ACETAMINOPHEN 5/325MG TABLET PO PRN (00:15)
[2017-12-10 00:48] LABS: CLARITY URINE CLEAR (CLEAR); COLOR URINE YELLOW (YELLOW); KETONES URINE NEGATIVE (NEGATIVE); LEUKOCYTE ESTERASE URINE NEGATIVE (NEGATIVE); NITRITE URINE NEGATIVE (NEGATIVE); OCCULT BLOOD URINE NEGATIVE (NEGATIVE); PROTEIN URINE 2+ (NEGATIVE); SPECIFIC GRAVITY URINE 1.009 (1.005-1.030)
[2017-12-10] MEDS: METHYLPREDNISOLONE SOD SUCC 125 MG/2 ML VIAL IV SCH ×5 (00:58→23:19)
[2017-12-10 02:55] LABS: *AMPHETAMINES SCREEN URINE NEGATIVE (NEGATIVE)
[2017-12-10 02:56] LABS: *BARBITURATES SCREEN URINE NEGATIVE (NEGATIVE); *BENZODIAZEPINES SCREEN URINE NEGATIVE (NEGATIVE); *COCAINE SCREEN URINE NEGATIVE (NEGATIVE); METHADONE URINE SCREEN NEGATIVE (NEGATIVE); OPIATES URINE SCREEN NEGATIVE (NEGATIVE); PHENCYCLIDINE URINE SCREEN NEGATIVE (NEGATIVE)
[2017-12-10 02:57] LABS: CANNABINOID URINE SCREEN NEGATIVE (NEGATIVE)
[2017-12-10] MEDS: IPRATROPIUM/ALBUTEROL 0.5-3(2.5)MG/3ML NEB INH SCH ×3 (08:05→20:06)
[2017-12-10] MEDS: ENOXAPARIN 40MG/0.4ML SYR SUBCUT SCH (09:07)
[2017-12-10] MEDS: FUROSEMIDE 40MG/4ML VIAL IV SCH (09:07)
[2017-12-10 11:09] LABS: T4 FREE 1.18 ng/dL (0.76-1.46)
[2017-12-10] MEDS: LOSARTAN POTASSIUM 50 MG TABLET PO SCH (12:43)
[2017-12-10] MEDS: AMIODARONE HCL 200 MG TABLET PO SCH (12:44)
[2017-12-10 15:59] LABS: CREATINE KINASE 78 IU/L (39-308); CREATINE KINASE MB FRACTION 4.3 ng/mL (0.5-3.6)
[2017-12-10 19:45] LABS: TOTAL IRON BINDING CAPACITY 344 ug/dL (250-450)
[2017-12-10] MEDS ORDERED: DEXTROSE 50% WATER 50ML SYRINGE IV PRN (20:30)
[2017-12-10] MEDS: BLOOD SUGAR DIAGNOSTIC STRIP TEST SCH (21:00)
[2017-12-10] MEDS: CARVEDILOL 3.125 MG TABLET PO SCH (21:30)
[2017-12-10] MEDS: INSULIN GLARGINE UD 100 UNITS/ML SYR SUBCUT SCH (21:31)
[2017-12-10] MEDS: INSULIN LISPRO 100 UNITS/ML SUBCUT SCH (21:31)
[2017-12-10] MEDS: LEVOFLOXACIN 500MG PREMIX 100 ML IV SCH (21:31)
[2017-12-11] VITALS (10 sets, daily range): BP systolic 107–150; BP diastolic 46–78
[2017-12-11] MEDS: IPRATROPIUM/ALBUTEROL 0.5-3(2.5)MG/3ML NEB INH SCH ×4 (01:57→20:28)
[2017-12-11] MEDS: METHYLPREDNISOLONE SOD SUCC 125 MG/2 ML VIAL IV SCH ×4 (05:34→23:30)
[2017-12-11 07:31] LABS: HEMATOCRIT. 38.1 % (42.0-52.0); HEMOGLOBIN. 13.5 g/dL (14.0-18.0); MEAN CORPUSCULAR HEMOGLOBIN 34.4 pg (28.0-32.0); MEAN CORPUSCULAR VOLUME 97.2 fL (80.0-94.0); MEAN PLATELET VOLUME 9.7 fl (7.4-10.4); PLATELET 126 x1000/uL (130-400); RED BLOOD CELL COUNT 3.92 mill/uL (4.7-6.1); RED CELL DISTRIBUTION WIDTH 13.9 % (11.6-14.6)
[2017-12-11 07:46] LABS: CHLORIDE 104 mEq/L (98-107)
[2017-12-11] MEDS: BLOOD SUGAR DIAGNOSTIC STRIP TEST SCH ×4 (07:54→20:47)
[2017-12-11 08:10] LABS: LDL CHOLESTEROL 64 mg/dL (5-100)
[2017-12-11 08:13] LABS: HDL CHOLESTEROL 42 mg/dL (40-59)
[2017-12-11] MEDS: INSULIN LISPRO 100 UNITS/ML SUBCUT SCH ×4 (08:21→21:04)
[2017-12-11] MEDS: FUROSEMIDE 40MG/4ML VIAL IV SCH (09:53)
[2017-12-11] MEDS: PANTOPRAZOLE SODIUM 40 MG/VIAL IV SCH (09:53)
[2017-12-11] MEDS: CARVEDILOL 3.125 MG TABLET PO SCH ×2 (09:53→21:03)
[2017-12-11] MEDS: AMIODARONE HCL 200 MG TABLET PO SCH (09:53)
[2017-12-11 09:54] LABS: FOLIC ACID (FOLATE) SERUM 15.2 ng/mL (>5.38)
[2017-12-11] MEDS: ENOXAPARIN 40MG/0.4ML SYR SUBCUT SCH (09:54)
[2017-12-11 11:03] LABS: PLATELET ESTIMATE SLIGHTLY DECREASED
[2017-12-11] MEDS: LOSARTAN POTASSIUM 50 MG TABLET PO SCH (11:09)
[2017-12-11] MEDS ORDERED: LIDOCAINE HCL/PF 1% 2ML VIAL ONE (14:40)
[2017-12-11 18:05] LABS: BG BASE EXCESS -2.9 mmol/L (-2.0-2.0); BG CARBOXYHEMOGLOBIN 0.4 % (0.5-1.5); BG DEOXYHEMOGLOBIN 5.7 % (0.0-5.0); BG FRACTION INSPIRED OXYGEN 21; BG METHEMOGLOBIN 1.1 % (0.0-1.5); BG OXYGEN SATURATION 94.2 % (92.0-98.5); BG OXYHEMOGLOBIN 92.8 % (94.0-97.0); BG PCO2 34.2 mmHg (35.0-45.0); BG PH 7.406 (7.350-7.450); BG PO2 75.1 mmHg (75.0-100.0); BG SAMPLE SITE RIGHT BRACHIAL; BG TOTAL HEMOGLOBIN 14.4 g/dL (12.0-18.0); BG VENT MODE ROOM AIR
[2017-12-11] MEDS: LEVOFLOXACIN 500MG PREMIX 100 ML IV SCH (20:08)
[2017-12-11] MEDS: INSULIN GLARGINE UD 100 UNITS/ML SYR SUBCUT SCH (21:04)
[2017-12-12] VITALS (10 sets, daily range): BP systolic 112–150; BP diastolic 56–86
[2017-12-12] MEDS: IPRATROPIUM/ALBUTEROL 0.5-3(2.5)MG/3ML NEB INH SCH ×3 (01:56→12:51)
[2017-12-12] MEDS: METHYLPREDNISOLONE SOD SUCC 125 MG/2 ML VIAL IV SCH ×3 (05:36→17:44)
[2017-12-12] MEDS: BLOOD SUGAR DIAGNOSTIC STRIP TEST SCH ×3 (08:10→17:46)
[2017-12-12] MEDS: PANTOPRAZOLE SODIUM 40 MG/VIAL IV SCH (09:00)
[2017-12-12] MEDS: ENOXAPARIN 40MG/0.4ML SYR SUBCUT SCH (09:01)
[2017-12-12] MEDS: FUROSEMIDE 40MG/4ML VIAL IV SCH (09:01)
[2017-12-12] MEDS: INSULIN LISPRO 100 UNITS/ML SUBCUT SCH ×3 (09:03→17:46)
[2017-12-12] MEDS: LOSARTAN POTASSIUM 50 MG TABLET PO SCH (09:15)
[2017-12-12] MEDS: AMIODARONE HCL 200 MG TABLET PO SCH (09:18)
[2017-12-12] MEDS: CARVEDILOL 3.125 MG TABLET PO SCH (09:19)
== END 2017-12-12 19:00 | disposition home or self-care (01) | DRG 291 ==
LOC: ER 18:41 → 5EST 20:48 → EDBEDREQ 21:51 → EDBEDREQTM 21:51 → ENRESERV 22:51
PROVIDERS: ADMIT Internal Medicine; ATTEND Internal Medicine
PROC: 5A09357 Assistance with Respiratory Ventilation, Less than 24 Consecutive Hours, Continuous Positive Airway Pressure (ICD-10-PCS; 2017-12-09)
PROC: 5A09357 Assistance with Respiratory Ventilation, Less than 24 Consecutive Hours, Continuous Positive Airway Pressure (ICD-10-PCS; principal; 2017-12-10)
PROC: 5A09357 Assistance with Respiratory Ventilation, Less than 24 Consecutive Hours, Continuous Positive Airway Pressure (ICD-10-PCS; 2017-12-11)
DX: I13.0 Hypertensive heart and chronic kidney disease with heart failure and stage 1 through stage 4 chronic kidney disease, or unspecified chronic kidney disease (principal); I50.43 Acute on chronic combined systolic (congestive) and diastolic (congestive) heart failure; J96.01 Acute respiratory failure with hypoxia; J44.1 Chronic obstructive pulmonary disease with (acute) exacerbation; E87.2 Acidosis; D53.9 Nutritional anemia, unspecified; E11.22 Type 2 diabetes mellitus with diabetic chronic kidney disease; E78.5 Hyperlipidemia, unspecified; F10.10 Alcohol abuse, uncomplicated; F12.90 Cannabis use, unspecified, uncomplicated; I48.0 Paroxysmal atrial fibrillation; F17.210 Nicotine dependence, cigarettes, uncomplicated; I25.10 Atherosclerotic heart disease of native coronary artery without angina pectoris; I25.5 Ischemic cardiomyopathy; K21.9 Gastro-esophageal reflux disease without esophagitis; N18.9 Chronic kidney disease, unspecified; Z82.49 Family history of ischemic heart disease and other diseases of the circulatory system; Z95.1 Presence of aortocoronary bypass graft; I25.2 Old myocardial infarction; Z87.01 Personal history of pneumonia (recurrent)
CPT/HCPCS: 36415; 36600; 71045; 80053; 80061; 80305; 81003; 82375; 82550; 82553; 82607; 82746; 82805; 82962; 83036; 83540; 83550; 83605; 83880; 84439; 84443; 84484; 85025; 85379; 85610; 85730; 87040; 93005; 93306; 93970; 94640; 94660; 96365; 96375; 97162; 99291; C9113; G0482; J1650; J1815; J1940; J1956; J2930; J3490; J7040; J7620

== ENCOUNTER 2018-02-07 00:03 | Inpatient (IN) | payer OTHER, MEDICAID ==
[2018-02-07] VITALS (49 sets, daily range): BP systolic 99–154; BP diastolic 58–88
[~2018-02-07] VITALS: Ht 180.3 cm; Wt 71.2 kg
[~2018-02-07 00:03] MED LIST changes: -DILT60TA35 PO; -FURO20TA4 PO
[2018-02-07] MEDS ORDERED: ALBUTEROL (0.083%) 2.5MG/3ML NEB HHN STA (00:11)
[2018-02-07] MEDS ORDERED: MAGNESIUM 2 G PREMIX 50 ML IV STA (00:11)
[2018-02-07] MEDS ORDERED: METHYLPREDNISOLONE SOD SUCC 125 MG/2 ML VIAL IV STA (00:11)
[2018-02-07] MEDS ORDERED: IPRATROPIUM BROMIDE (0.02%) 0.5MG/2.5ML NEB HHN STA (00:11)
[2018-02-07] MEDS ORDERED: NITROGLYCERIN 50MG PREMIX 250 ML IV ONE (01:30)
[2018-02-07 01:39] LABS: HEMATOCRIT. 43.8 % (42.0-52.0); HEMOGLOBIN. 14.8 g/dL (14.0-18.0); MEAN CORPUSCULAR HEMOGLOBIN 34.2 pg (28.0-32.0); MEAN CORPUSCULAR VOLUME 101.4 fL (80.0-94.0); MEAN PLATELET VOLUME 8.7 fl (7.4-10.4); PLATELET 218 x1000/uL (130-400); RED BLOOD CELL COUNT 4.32 mill/uL (4.7-6.1)
[2018-02-07 01:47] LABS: CHLORIDE 105 mEq/L (98-107)
[2018-02-07 01:49] LABS: INR 1.1; PARTIAL THROMBOPLASTIN TIME 27.8 sec (23.4-31.0); PROTHROMBIN TIME 10.7 sec (9.1-11.1)
[2018-02-07] MEDS ORDERED: ETOMIDATE 2MG/ML 10ML VIAL IV ONE (01:54)
[2018-02-07] MEDS ORDERED: SUCCINYLCHOLINE CHLORIDE 200MG/10ML IV ONE (01:54)
[2018-02-07] MEDS ORDERED: VANCOMYCIN 1 G PREMIX 200 ML IV SCH (02:00)
[2018-02-07] MEDS ORDERED: PROPOFOL 10MG/ML 100ML 100 ML IV SCH (02:00)
[2018-02-07] MEDS ORDERED: SODIUM CHLORIDE 0.9% 1000ML BAG (SEPSIS BOLUS) IV ONE (02:30)
[2018-02-07] MEDS ORDERED: NITROGLYCERIN 50MG PREMIX 250 ML IV SCH (02:33)
[2018-02-07 02:44] LABS: BG BASE EXCESS -6.4 mmol/L (-2.0-2.0); BG CARBOXYHEMOGLOBIN 2.7 % (0.5-1.5); BG DEOXYHEMOGLOBIN 9.8 % (0.0-5.0); BG FRACTION INSPIRED OXYGEN 100; BG HCO3 ACT 24.8 mmol/L (22.0-26.0); BG METHEMOGLOBIN 0.4 % (0.0-1.5); BG OXYGEN SATURATION 89.9 % (92.0-98.5); BG OXYHEMOGLOBIN 87.1 % (94.0-97.0); BG PCO2 77.3 mmHg (35.0-45.0); BG PH 7.124 (7.350-7.450); BG PO2 74.2 mmHg (75.0-100.0); BG SAMPLE SITE RIGHT BRACHIAL; BG TIDAL VOLUME(mL) 550 mL; BG VENT MODE VENT - A/C; BG VENT RATE 16 set
[2018-02-07] MEDS ORDERED: PIPERACILLIN SODIUM/TAZOBACTAM 4.5 G in DEXT 5% WATER 100 ML IV SCH (03:00)
[2018-02-07] MEDS ORDERED: AZITHROMYCIN 500 MG in DEXT 5% WATER 250 ML IV SCH (03:00)
[2018-02-07 03:07] LABS: PLATELET ESTIMATE NORMAL
[2018-02-07] MEDS ORDERED: IOHEXOL-300 100 ML BOTTLE ONE (06:57)
[2018-02-07 11:15] LABS: BG BASE EXCESS -4.7 mmol/L (-2.0-2.0); BG CARBOXYHEMOGLOBIN 0.7 % (0.5-1.5); BG DEOXYHEMOGLOBIN 0.7 % (0.0-5.0); BG HCO3 ACT 20.9 mmol/L (22.0-26.0); BG METHEMOGLOBIN 0.3 % (0.0-1.5); BG OXYGEN SATURATION 99.3 % (92.0-98.5); BG OXYHEMOGLOBIN 98.3 % (94.0-97.0); BG PCO2 40.5 mmHg (35.0-45.0); BG PO2 328.8 mmHg (75.0-100.0); BG SAMPLE SITE RIGHT BRACHIAL; BG TIDAL VOLUME(mL) 550 mL; BG TOTAL HEMOGLOBIN 13.3 g/dL (12.0-18.0); BG VENT MODE VENT - A/C; BG VENT RATE 14 set
[2018-02-07] MEDS ORDERED: IPRATROPIUM/ALBUTEROL 0.5-3(2.5)MG/3ML NEB HHN PRN (11:30)
[2018-02-07] MEDS ORDERED: NOREPINEPHRINE 16 MG in DEXT 5% WATER 234 ML IV PRN (13:45)
[2018-02-07] MEDS ORDERED: FUROSEMIDE 40MG/4ML VIAL IVP SCH (13:45)
[2018-02-07] MEDS ORDERED: ENOXAPARIN 30MG/0.3ML SYR SUBCUT SCH (13:56)
[2018-02-07] MEDS ORDERED: ENOXAPARIN 40MG/0.4ML SYR SUBCUT SCH (14:20)
[2018-02-07 15:43] LABS: CLARITY URINE CLEAR (CLEAR); COLOR URINE YELLOW (YELLOW); KETONES URINE NEGATIVE (NEGATIVE); LEUKOCYTE ESTERASE URINE NEGATIVE (NEGATIVE); NITRITE URINE NEGATIVE (NEGATIVE); OCCULT BLOOD URINE 1+ (NEGATIVE); PROTEIN URINE TRACE (NEGATIVE); SPECIFIC GRAVITY URINE 1.041 (1.005-1.030); UROBILINOGEN URINE 0.2 E.U./dL (0.2-1.0)
[2018-02-07] MEDS: PROPOFOL 10MG/ML 100ML 100 ML IV PRN ×2 (16:01→20:20)
[2018-02-07] MEDS: PIPERACILLIN/TAZ 3.375G PREMIX 50 ML IV SCH ×2 (16:15→21:32)
[2018-02-07 16:19] LABS: *COCAINE SCREEN URINE NEGATIVE (NEGATIVE)
[2018-02-07 16:21] LABS: *BENZODIAZEPINES SCREEN URINE PRESUMTIVE POSITIVE (NEGATIVE); METHADONE URINE SCREEN NEGATIVE (NEGATIVE); OPIATES URINE SCREEN NEGATIVE (NEGATIVE)
[2018-02-07 16:22] LABS: *AMPHETAMINES SCREEN URINE NEGATIVE (NEGATIVE); *BARBITURATES SCREEN URINE NEGATIVE (NEGATIVE); CANNABINOID URINE SCREEN NEGATIVE (NEGATIVE); PHENCYCLIDINE URINE SCREEN NEGATIVE (NEGATIVE)
[2018-02-07] MEDS: IPRATROPIUM/ALBUTEROL 0.5-3(2.5)MG/3ML NEB HHN SCH ×2 (16:47→20:01)
[2018-02-07] MEDS ORDERED: DEXTROSE 50% WATER 50ML SYRINGE IV PRN ×2 (17:45→18:00)
[2018-02-07] MEDS ORDERED: BLOOD SUGAR DIAGNOSTIC STRIP TEST SCH (18:00)
[2018-02-07] MEDS ORDERED: INSULIN LISPRO 100 UNITS/ML SUBCUT SCH (18:00)
[2018-02-07] MEDS: VANCOMYCIN 1 G PREMIX 200 ML IV SCH (18:27)
[2018-02-07] MEDS: BLOOD SUGAR DIAGNOSTIC STRIP TEST SCH ×2 (18:29→21:00)
[2018-02-07] MEDS: FUROSEMIDE 40MG/4ML VIAL IVP SCH (18:29)
[2018-02-07] MEDS: INSULIN LISPRO 100 UNITS/ML SUBCUT SCH ×2 (18:43→22:01)
[2018-02-07] MEDS ORDERED: POTASSIUM CHLORIDE 20MEQ TABLET SR PO NR (20:45)
[2018-02-07] MEDS ORDERED: KCL 20MEQ/100ML PREMIX 100 ML IV NR (21:30)
[2018-02-07] MEDS: INSULIN GLARGINE UD 100 UNITS/ML SYR SUBCUT SCH (22:01)
[2018-02-07] MEDS: KCL 10MEQ/50ML PREMIX 50 ML IV SCH (23:14)
[2018-02-08] VITALS (91 sets, daily range): BP systolic 89–169; BP diastolic 51–115
[2018-02-08] MEDS: KCL 10MEQ/50ML PREMIX 50 ML IV SCH (00:24)
[2018-02-08] MEDS ORDERED: CARV12.545 MT (00:39)
[2018-02-08] MEDS ORDERED: METF500S7 PO (00:39)
[2018-02-08] MEDS ORDERED: FURO-151 PO (00:39)
[2018-02-08] MEDS: PROPOFOL 10MG/ML 100ML 100 ML IV PRN ×2 (01:02→05:50)
[2018-02-08] MEDS: IPRATROPIUM/ALBUTEROL 0.5-3(2.5)MG/3ML NEB HHN SCH ×6 (01:16→20:43)
[2018-02-08] MEDS: AZITHROMYCIN 500 MG in DEXT 5% WATER 250 ML IV SCH (04:23)
[2018-02-08] MEDS: PIPERACILLIN/TAZ 3.375G PREMIX 50 ML IV SCH ×3 (05:41→21:58)
[2018-02-08 05:54] LABS: CHLORIDE 109 mEq/L (98-107)
[2018-02-08 06:05] LABS: PHOSPHORUS 3.7 mg/dL (2.5-4.9)
[2018-02-08] MEDS: BLOOD SUGAR DIAGNOSTIC STRIP TEST SCH ×4 (06:30→21:00)
[2018-02-08] MEDS: VANCOMYCIN 1 G PREMIX 200 ML IV SCH ×2 (06:33→17:54)
[2018-02-08] MEDS: INSULIN LISPRO 100 UNITS/ML SUBCUT SCH ×4 (06:38→22:01)
[2018-02-08 08:19] LABS: BG BASE EXCESS -1.7 mmol/L (-2.0-2.0); BG CARBOXYHEMOGLOBIN 0.7 % (0.5-1.5); BG DEOXYHEMOGLOBIN 1.5 % (0.0-5.0); BG FRACTION INSPIRED OXYGEN 40; BG HCO3 ACT 22.2 mmol/L (22.0-26.0); BG METHEMOGLOBIN 0.2 % (0.0-1.5); BG OXYGEN SATURATION 98.5 % (92.0-98.5); BG OXYHEMOGLOBIN 97.6 % (94.0-97.0); BG PCO2 34.8 mmHg (35.0-45.0); BG PH 7.423 (7.350-7.450); BG PO2 139.3 mmHg (75.0-100.0); BG SAMPLE SITE RIGHT RADIAL; BG TIDAL VOLUME(mL) 550 mL; BG TOTAL HEMOGLOBIN 11.2 g/dL (12.0-18.0); BG VENT MODE VENT - A/C; BG VENT RATE 16 set
[2018-02-08] MEDS ORDERED: FUROSEMIDE 40MG/4ML VIAL IVP SCH (09:00)
[2018-02-08] MEDS ORDERED: PROPOFOL 10MG/ML 100ML 100 ML IV PRN (09:00)
[2018-02-08] MEDS: ENOXAPARIN 80MG/0.8ML SYR SUBCUT SCH ×3 (09:00→20:08)
[2018-02-08] MEDS: PANTOPRAZOLE SODIUM 40 MG/VIAL IV SCH (09:18)
[2018-02-08] MEDS: FUROSEMIDE 40MG/4ML VIAL IVP SCH ×2 (09:18→17:54)
[2018-02-08 09:41] LABS: HEMATOCRIT. 32.2 % (42.0-52.0); HEMOGLOBIN. 11.4 g/dL (14.0-18.0); MEAN CORPUSCULAR HEMOGLOBIN 34.6 pg (28.0-32.0); MEAN CORPUSCULAR VOLUME 97.5 fL (80.0-94.0); MEAN PLATELET VOLUME 9.1 fl (7.4-10.4); PLATELET 120 x1000/uL (130-400); RED CELL DISTRIBUTION WIDTH 14.6 % (11.6-14.6)
[2018-02-08] MEDS: INSULIN GLARGINE UD 100 UNITS/ML SYR SUBCUT SCH ×2 (10:00→23:03)
[2018-02-08 10:01] LABS: T4 FREE 1.2 ng/dL (0.76-1.46)
[2018-02-08 11:30] LABS: PLATELET ESTIMATE SLIGHTLY DECREASED
[2018-02-08] MEDS ORDERED: MAGNESIUM 2 G PREMIX 50 ML IV NR (12:00)
[2018-02-08] MEDS ORDERED: MORPHINE SULFATE 4 MG/ML CPJ (NOT FOR IM USE) IV PRN (15:15)
[2018-02-08 15:52] LABS: CREATINE KINASE 698 IU/L (39-308)
[2018-02-08 15:53] LABS: CREATINE KINASE MB FRACTION 9.5 ng/mL (0.5-3.6)
[2018-02-08] MEDS: LORAZEPAM 2MG/ML CPJ IV PRN (20:51)
[2018-02-09] VITALS (65 sets, daily range): BP systolic 101–177; BP diastolic 47–118
[2018-02-09 00:08] LABS: CREATINE KINASE 472 IU/L (39-308)
[2018-02-09 00:09] LABS: CREATINE KINASE MB FRACTION 5.8 ng/mL (0.5-3.6)
[2018-02-09] MEDS: IPRATROPIUM/ALBUTEROL 0.5-3(2.5)MG/3ML NEB HHN SCH ×7 (00:28→23:49)
[2018-02-09] MEDS: PIPERACILLIN/TAZ 3.375G PREMIX 50 ML IV SCH ×4 (03:06→21:08)
[2018-02-09] MEDS: AZITHROMYCIN 500 MG in DEXT 5% WATER 250 ML IV SCH (04:24)
[2018-02-09 05:39] LABS: CHLORIDE 109 mEq/L (98-107)
[2018-02-09] MEDS: VANCOMYCIN 1 G PREMIX 200 ML IV SCH (05:44)
[2018-02-09 05:46] LABS: BASOPHILS % 0.1 % (0.0-2.0); EOSINOPHILS % 0.1 % (0.0-5.0); HEMATOCRIT. 33.7 % (42.0-52.0); HEMOGLOBIN. 11.7 g/dL (14.0-18.0); LYMPHOCYTES % 10.7 % (20.0-50.0); MEAN CORPUSCULAR HEMOGLOBIN 34.1 pg (28.0-32.0); MEAN CORPUSCULAR VOLUME 98.2 fL (80.0-94.0); MEAN PLATELET VOLUME 9.5 fl (7.4-10.4); MONOCYTES % 4.5 % (2.0-8.0); NEUTROPHILS % 84.6 % (40.0-76.0); PLATELET 119 x1000/uL (130-400); RED BLOOD CELL COUNT 3.43 mill/uL (4.7-6.1); RED CELL DISTRIBUTION WIDTH 15.1 % (11.6-14.6)
[2018-02-09 05:49] LABS: CREATINE KINASE 347 IU/L (39-308); VANCOMYCIN TROUGH 18.8 ug/mL (5.0-10.0)
[2018-02-09 05:51] LABS: CREATINE KINASE MB FRACTION 3.3 ng/mL (0.5-3.6)
[2018-02-09] MEDS: BLOOD SUGAR DIAGNOSTIC STRIP TEST SCH ×4 (06:30→21:18)
[2018-02-09] MEDS: INSULIN LISPRO 100 UNITS/ML SUBCUT SCH ×4 (06:34→21:43)
[2018-02-09 07:32] LABS: BG BASE EXCESS 4.1 mmol/L (-2.0-2.0); BG CARBOXYHEMOGLOBIN 0.3 % (0.5-1.5); BG DEOXYHEMOGLOBIN 1.6 % (0.0-5.0); BG FRACTION INSPIRED OXYGEN 40; BG HCO3 ACT 26.6 mmol/L (22.0-26.0); BG METHEMOGLOBIN 0.1 % (0.0-1.5); BG OXYGEN SATURATION 98.4 % (92.0-98.5); BG PCO2 32.6 mmHg (35.0-45.0); BG PO2 136.1 mmHg (75.0-100.0); BG SAMPLE SITE RIGHT BRACHIAL; BG TIDAL VOLUME(mL) 550 mL; BG TOTAL HEMOGLOBIN 10.9 g/dL (12.0-18.0); BG VENT MODE VENT - A/C; BG VENT RATE 16 set
[2018-02-09] MEDS: PANTOPRAZOLE SODIUM 40 MG/VIAL IV SCH (09:31)
[2018-02-09] MEDS: LORAZEPAM 2MG/ML CPJ IV PRN (09:32)
[2018-02-09] MEDS: FUROSEMIDE 40MG/4ML VIAL IVP SCH ×2 (09:32→17:04)
[2018-02-09] MEDS ORDERED: LORAZEPAM 2MG/ML CPJ ONE (09:34)
[2018-02-09] MEDS: ENOXAPARIN 80MG/0.8ML SYR SUBCUT SCH ×2 (09:49→21:09)
[2018-02-09] MEDS: INSULIN GLARGINE UD 100 UNITS/ML SYR SUBCUT SCH ×2 (11:32→21:46)
[2018-02-09 15:02] LABS: BG BASE EXCESS 3.8 mmol/L (-2.0-2.0); BG CARBOXYHEMOGLOBIN 0.5 % (0.5-1.5); BG CPAP (cmH2O) 0 cm(H2O); BG DEOXYHEMOGLOBIN 1.5 % (0.0-5.0); BG HCO3 ACT 26.6 mmol/L (22.0-26.0); BG METHEMOGLOBIN 0.1 % (0.0-1.5); BG OXYGEN SATURATION 98.5 % (92.0-98.5); BG OXYHEMOGLOBIN 97.9 % (94.0-97.0); BG PCO2 33.9 mmHg (35.0-45.0); BG PH 7.512 (7.350-7.450); BG PO2 128.4 mmHg (75.0-100.0); BG SAMPLE SITE RIGHT BRACHIAL; BG TOTAL HEMOGLOBIN 12.1 g/dL (12.0-18.0); BG VENT MODE VENT - CPAP
[2018-02-09] MEDS ORDERED: DILTIAZEM HCL 5MG/ML 5ML VIAL IV NR (16:45)
[2018-02-09] MEDS ORDERED: DIGOXIN 500MCG/2ML AMP IV NR (16:45)
[2018-02-10] VITALS (40 sets, daily range): BP systolic 92–154; BP diastolic 46–86
[2018-02-10] MEDS ORDERED: VANCOMYCIN 1500MG in DEXTROSE 5% WATER 250ML IV SCH ×2
[2018-02-10] MEDS: PIPERACILLIN/TAZ 3.375G PREMIX 50 ML IV SCH ×4 (02:17→21:59)
[2018-02-10] MEDS: AZITHROMYCIN 500 MG in DEXT 5% WATER 250 ML IV SCH (04:01)
[2018-02-10] MEDS: IPRATROPIUM/ALBUTEROL 0.5-3(2.5)MG/3ML NEB HHN SCH ×5 (04:02→20:07)
[2018-02-10 05:39] LABS: BASOPHILS % 0.3 % (0.0-2.0); EOSINOPHILS % 0.9 % (0.0-5.0); HEMATOCRIT. 34.3 % (42.0-52.0); LYMPHOCYTES % 18.5 % (20.0-50.0); MEAN CORPUSCULAR HEMOGLOBIN 34.3 pg (28.0-32.0); MEAN CORPUSCULAR VOLUME 97.9 fL (80.0-94.0); MEAN PLATELET VOLUME 9.3 fl (7.4-10.4); MONOCYTES % 4.6 % (2.0-8.0); NEUTROPHILS % 75.7 % (40.0-76.0); PLATELET 123 x1000/uL (130-400); RED CELL DISTRIBUTION WIDTH 15.5 % (11.6-14.6)
[2018-02-10] MEDS: BLOOD SUGAR DIAGNOSTIC STRIP TEST SCH ×4 (05:39→21:41)
[2018-02-10 06:05] LABS: CHLORIDE 106 mEq/L (98-107)
[2018-02-10] MEDS: INSULIN LISPRO 100 UNITS/ML SUBCUT SCH ×4 (07:00→21:00)
[2018-02-10] MEDS: FUROSEMIDE 40MG/4ML VIAL IVP SCH ×2 (09:00→17:51)
[2018-02-10] MEDS: PANTOPRAZOLE SODIUM 40 MG/VIAL IV SCH (09:00)
[2018-02-10] MEDS: ENOXAPARIN 80MG/0.8ML SYR SUBCUT SCH ×2 (09:01→21:57)
[2018-02-10] MEDS ORDERED: POTASSIUM CHLORIDE 20MEQ TABLET SR PO SCH (09:45)
[2018-02-10] MEDS ORDERED: INSULIN GLARGINE UD 100 UNITS/ML SYR SUBCUT SCH (11:00)
[2018-02-10] MEDS ORDERED: BLOOD SUGAR DIAGNOSTIC STRIP TEST SCH (11:30)
[2018-02-10] MEDS: NICOTINE 14MG PATCH TD SCH (14:32)
[2018-02-10] MEDS ORDERED: AMIODARONE HCL 150 MG in DEXT 5% WATER 100 ML IV NR (16:45)
[2018-02-10] MEDS ORDERED: AMIODARONE HCL 900 MG in DEXT 5% WATER 482 ML IV PRN (17:00)
[2018-02-10] MEDS: CARVEDILOL 3.125 MG TABLET PO SCH (21:55)
[2018-02-11] VITALS: BP 130/64
[2018-02-11] MEDS: IPRATROPIUM/ALBUTEROL 0.5-3(2.5)MG/3ML NEB HHN SCH ×3 (00:30→08:08)
[2018-02-11 01:49] VITALS: BP 155/86
[2018-02-11 04:00] VITALS: BP 129/74
[2018-02-11] MEDS: PIPERACILLIN/TAZ 3.375G PREMIX 50 ML IV SCH ×2 (04:22→09:02)
[2018-02-11] MEDS: AZITHROMYCIN 500 MG in DEXT 5% WATER 250 ML IV SCH (04:22)
[2018-02-11 06:00] VITALS: BP 147/81
[2018-02-11 07:16] LABS: BASOPHILS % 0.3 % (0.0-2.0); EOSINOPHILS % 1.8 % (0.0-5.0); HEMATOCRIT. 34.4 % (42.0-52.0); HEMOGLOBIN. 12.1 g/dL (14.0-18.0); LYMPHOCYTES % 18.6 % (20.0-50.0); MEAN CORPUSCULAR HEMOGLOBIN 34.3 pg (28.0-32.0); MEAN CORPUSCULAR VOLUME 97.5 fL (80.0-94.0); MEAN PLATELET VOLUME 8.9 fl (7.4-10.4); MONOCYTES % 5.8 % (2.0-8.0); NEUTROPHILS % 73.5 % (40.0-76.0); PLATELET 135 x1000/uL (130-400); RED BLOOD CELL COUNT 3.53 mill/uL (4.7-6.1); RED CELL DISTRIBUTION WIDTH 14.9 % (11.6-14.6)
[2018-02-11 07:25] LABS: CHLORIDE 103 mEq/L (98-107)
[2018-02-11 08:00] VITALS: BP 103/38
[2018-02-11] MEDS: INSULIN LISPRO 100 UNITS/ML SUBCUT SCH (08:00)
[2018-02-11] MEDS: BLOOD SUGAR DIAGNOSTIC STRIP TEST SCH (08:02)
[2018-02-11] MEDS: ENOXAPARIN 80MG/0.8ML SYR SUBCUT SCH ×2 (09:00→09:02)
[2018-02-11] MEDS: FUROSEMIDE 40MG/4ML VIAL IVP SCH (09:01)
[2018-02-11] MEDS: NICOTINE 14MG PATCH TD SCH (09:02)
[2018-02-11] MEDS: PANTOPRAZOLE SODIUM 40 MG/VIAL IV SCH (09:02)
[2018-02-11] MEDS: CARVEDILOL 3.125 MG TABLET PO SCH (09:03)
[2018-02-11 10:00] VITALS: BP 157/81
== END 2018-02-11 11:40 | disposition left against medical advice (07) | DRG 871 ==
LOC: ER 00:03 → MICUNO 02:19 → ENRESERV 10:05 → 5EST 02-10 23:15
PROVIDERS: ADMIT Internal Medicine; ATTEND Internal Medicine
PROC: 5A1945Z Respiratory Ventilation, 24-96 Consecutive Hours (ICD-10-PCS; principal; 2018-02-07)
PROC: 0BH18EZ Insertion of Endotracheal Airway into Trachea, Via Natural or Artificial Opening Endoscopic (ICD-10-PCS; 2018-02-07)
PROC: 5A09357 Assistance with Respiratory Ventilation, Less than 24 Consecutive Hours, Continuous Positive Airway Pressure (ICD-10-PCS; 2018-02-07)
DX: A41.9 Sepsis, unspecified organism (principal); I50.43 Acute on chronic combined systolic (congestive) and diastolic (congestive) heart failure; J18.9 Pneumonia, unspecified organism; J96.01 Acute respiratory failure with hypoxia; J96.02 Acute respiratory failure with hypercapnia; J44.0 Chronic obstructive pulmonary disease with (acute) lower respiratory infection; E87.2 Acidosis; I42.9 Cardiomyopathy, unspecified; I48.92 Unspecified atrial flutter; I11.0 Hypertensive heart disease with heart failure; D69.6 Thrombocytopenia, unspecified; E11.9 Type 2 diabetes mellitus without complications; E78.5 Hyperlipidemia, unspecified; E87.6 Hypokalemia; F17.210 Nicotine dependence, cigarettes, uncomplicated; I25.10 Atherosclerotic heart disease of native coronary artery without angina pectoris; I27.20 Pulmonary hypertension, unspecified; I35.0 Nonrheumatic aortic (valve) stenosis; I48.91 Unspecified atrial fibrillation; B19.20 Unspecified viral hepatitis C without hepatic coma; Z71.6 Tobacco abuse counseling; Z89.111 Acquired absence of right hand; Z79.82 Long term (current) use of aspirin; Z78.1 Physical restraint status; Z82.49 Family history of ischemic heart disease and other diseases of the circulatory system; Z95.1 Presence of aortocoronary bypass graft; Z93.3 Colostomy status; Z79.899 Other long term (current) drug therapy; Z53.21 Procedure and treatment not carried out due to patient leaving prior to being seen by health care provider
CPT/HCPCS: 31500; 36415; 36600; 71045; 74177; 80048; 80061; 80202; 80305; 82375; 82550; 82553; 82805; 82962; 83036; 83605; 83735; 83880; 84100; 84439; 84443; 84478; 84484; 85379; 86850; 86900; 87070; 87804; 92610; 93005; 93306; 93970; 94003; 94640; 96365; 96375; 97163; 97167; 99285; A6261; C1893; C9113; J0282; J0330; J0456; J1160; J1650; J1815; J1940; J2060; J2543; J2704; J2930; J3370; J3475; J3480; J3490; J7040; J7050; J7060; J7620; Q9967

== ENCOUNTER 2018-04-12 10:59 | Inpatient (IN) | payer OTHER, MEDICAID ==
[~2018-04-12] VITALS: Ht 165.1 cm; Wt 71.7 kg
[~2018-04-12 10:59] MED LIST changes: +CARV12.545 MT; +FURO-151 PO; +METF500S7 PO
[2018-04-12] MEDS ORDERED: IPRATROPIUM BROMIDE (0.02%) 0.5MG/2.5ML NEB HHN STA (11:04)
[2018-04-12] MEDS ORDERED: ALBUTEROL (0.083%) 2.5MG/3ML NEB HHN STA (11:04)
[2018-04-12] MEDS ORDERED: ASPIRIN 81MG TABLET PO ONE (11:15)
[2018-04-12] MEDS ORDERED: DILTIAZEM HCL 5MG/ML 5ML VIAL IV ONE (11:15)
[2018-04-12] MEDS ORDERED: IPRATROPIUM BROMIDE (0.02%) 0.5MG/2.5ML NEB ONE (11:26)
[2018-04-12] MEDS ORDERED: ALBUTEROL (0.083%) 2.5MG/3ML NEB ONE (11:27)
[2018-04-12] MEDS ORDERED: HYDRALAZINE 20MG/ML VIAL IV ONE (11:30)
[2018-04-12 11:46] LABS: BG BASE EXCESS -3.5 mmol/L (-2.0-2.0); BG BILEVEL POS AIRWAY PRESSURE 18/6; BG CARBOXYHEMOGLOBIN 1.5 % (0.5-1.5); BG DEOXYHEMOGLOBIN 1.6 % (0.0-5.0); BG FRACTION INSPIRED OXYGEN 75; BG HCO3 ACT 20.5 mmol/L (22.0-26.0); BG METHEMOGLOBIN 0.4 % (0.0-1.5); BG OXYGEN SATURATION 98.4 % (92.0-98.5); BG OXYHEMOGLOBIN 96.5 % (94.0-97.0); BG PCO2 34.1 mmHg (35.0-45.0); BG PH 7.397 (7.350-7.450); BG PO2 136.3 mmHg (75.0-100.0); BG SAMPLE SITE RIGHT RADIAL; BG TOTAL HEMOGLOBIN 14.2 g/dL (12.0-18.0); BG VENT MODE MASK - BIPAP; BG VENT RATE 22 set
[2018-04-12 11:59] LABS: BASOPHILS % 0.5 % (0.0-2.0); EOSINOPHILS % 0.1 % (0.0-5.0); HEMATOCRIT. 39.5 % (42.0-52.0); HEMOGLOBIN. 13.6 g/dL (14.0-18.0); LYMPHOCYTES % 10.1 % (20.0-50.0); MEAN CORPUSCULAR HEMOGLOBIN 33.9 pg (28.0-32.0); MEAN CORPUSCULAR VOLUME 98.2 fL (80.0-94.0); MEAN PLATELET VOLUME 9.1 fl (7.4-10.4); MONOCYTES % 5.8 % (2.0-8.0); NEUTROPHILS % 83.5 % (40.0-76.0); PLATELET 126 x1000/uL (130-400); RED BLOOD CELL COUNT 4.02 mill/uL (4.7-6.1); RED CELL DISTRIBUTION WIDTH 14.4 % (11.6-14.6)
[2018-04-12 12:01] LABS: CHLORIDE 101 mEq/L (98-107)
[2018-04-12 12:04] LABS: INR 1.3; PARTIAL THROMBOPLASTIN TIME 27.8 sec (23.4-31.0); PROTHROMBIN TIME 12.7 sec (9.1-11.1)
[2018-04-12] MEDS ORDERED: FUROSEMIDE 40MG/4ML VIAL IVP ONE (12:30)
[2018-04-12] MEDS ORDERED: CEFEPIME 1,000 MG in DEXTROSE 5% WATER 50 ML IV ONE (13:15)
[2018-04-12] MEDS ORDERED: ONDANSETRON HCL 4MG/2ML INJ IV ONE (13:15)
[2018-04-12] MEDS ORDERED: ONDANSETRON HCL 4MG/2ML INJ IV PRN (13:45)
[2018-04-12] MEDS ORDERED: DEXTROSE 50% WATER 50ML SYRINGE IV PRN (13:45)
[2018-04-12] MEDS ORDERED: SODIUM CHLORIDE 0.9% 500 ML IV ONE (13:45)
[2018-04-12 17:52] VITALS: BP 135/94
[2018-04-12 18:00] VITALS: BP 138/88
[2018-04-12] MEDS ORDERED: IPRATROPIUM/ALBUTEROL 0.5-3(2.5)MG/3ML NEB HHN PRN (18:15)
[2018-04-12] MEDS: AZITHROMYCIN 500 MG TABLET PO SCH (18:19)
[2018-04-12] MEDS: ASPIRIN 81MG TABLET PO SCH (18:19)
[2018-04-12] MEDS: FUROSEMIDE 40MG/4ML VIAL IVP SCH (18:20)
[2018-04-12] MEDS: BLOOD SUGAR DIAGNOSTIC STRIP TEST SCH ×2 (18:20→21:25)
[2018-04-12 20:00] VITALS: BP 139/84
[2018-04-12] MEDS ORDERED: CEFTRIAXONE 1 G PREMIX 50 ML IV SCH (20:00)
[2018-04-12] MEDS: IPRATROPIUM BROMIDE (0.02%) 0.5MG/2.5ML NEB HHN SCH (20:31)
[2018-04-12] MEDS: BUDESONIDE 0.5MG/2ML NEB HHN SCH (20:31)
[2018-04-12] MEDS: INSULIN LISPRO 100 UNITS/ML SUBCUT SCH (21:00)
[2018-04-12 22:00] VITALS: BP 148/92
[2018-04-13] VITALS (12 sets, daily range): BP systolic 100–149; BP diastolic 62–92
[2018-04-13] MEDS: IPRATROPIUM BROMIDE (0.02%) 0.5MG/2.5ML NEB HHN SCH ×6 (00:47→20:38)
[2018-04-13] MEDS: ACETAMINOPHEN 325MG TABLET PO PRN ×2 (05:52→16:28)
[2018-04-13] MEDS: BLOOD SUGAR DIAGNOSTIC STRIP TEST SCH ×4 (05:52→21:03)
[2018-04-13] MEDS: FUROSEMIDE 40MG/4ML VIAL IVP SCH ×2 (06:45→16:16)
[2018-04-13 07:19] LABS: BASOPHILS % 0.3 % (0.0-2.0); HEMATOCRIT. 39.5 % (42.0-52.0); HEMOGLOBIN. 13.6 g/dL (14.0-18.0); LYMPHOCYTES % 19.5 % (20.0-50.0); MEAN CORPUSCULAR HEMOGLOBIN 33.5 pg (28.0-32.0); MEAN CORPUSCULAR VOLUME 97.1 fL (80.0-94.0); MEAN PLATELET VOLUME 9.4 fl (7.4-10.4); MONOCYTES % 7.2 % (2.0-8.0); PLATELET 97 x1000/uL (130-400); RED BLOOD CELL COUNT 4.06 mill/uL (4.7-6.1); RED CELL DISTRIBUTION WIDTH 14.5 % (11.6-14.6)
[2018-04-13] MEDS: BUDESONIDE 0.5MG/2ML NEB HHN SCH ×2 (08:25→20:38)
[2018-04-13] MEDS: ASPIRIN 81MG TABLET PO SCH (08:37)
[2018-04-13] MEDS: AMLODIPINE 10MG TABLET PO SCH (08:37)
[2018-04-13] MEDS: INSULIN LISPRO 100 UNITS/ML SUBCUT SCH ×4 (08:38→21:00)
[2018-04-13] MEDS ORDERED: DIGOXIN 500MCG/2ML AMP IV SCH (09:15)
[2018-04-13 10:03] LABS: T4 FREE 1.35 ng/dL (0.76-1.46)
[2018-04-13] MEDS: ENOXAPARIN 80MG/0.8ML SYR SUBCUT SCH (11:08)
[2018-04-13 16:03] LABS: CREATINE KINASE MB FRACTION 4.9 ng/mL (0.5-3.6)
[2018-04-13] MEDS: AZITHROMYCIN 500 MG TABLET PO SCH (16:16)
[2018-04-13] MEDS ORDERED: CEFTRIAXONE 1 G PREMIX 50 ML IV SCH ×2 (18:00)
[2018-04-13] MEDS ORDERED: ENOXAPARIN 40MG/0.4ML SYR SUBCUT SCH (18:45)
[2018-04-13] MEDS: METOPROLOL TARTRATE 50MG TABLET PO SCH (21:02)
[2018-04-14] VITALS (16 sets, daily range): BP systolic 105–140; BP diastolic 52–78
[2018-04-14] MEDS: ENOXAPARIN 80MG/0.8ML SYR SUBCUT SCH ×3 (00:09→23:52)
[2018-04-14 00:34] LABS: CREATINE KINASE MB FRACTION 2.2 ng/mL (0.5-3.6)
[2018-04-14] MEDS: IPRATROPIUM BROMIDE (0.02%) 0.5MG/2.5ML NEB HHN SCH ×6 (01:02→20:55)
[2018-04-14] MEDS: BLOOD SUGAR DIAGNOSTIC STRIP TEST SCH ×4 (06:44→21:00)
[2018-04-14] MEDS: FUROSEMIDE 40MG/4ML VIAL IVP SCH ×2 (06:47→17:15)
[2018-04-14] MEDS: INSULIN LISPRO 100 UNITS/ML SUBCUT SCH ×4 (07:20→21:00)
[2018-04-14] MEDS: BUDESONIDE 0.5MG/2ML NEB HHN SCH ×2 (07:29→20:55)
[2018-04-14 07:34] LABS: BASOPHILS % 0.2 % (0.0-2.0); HEMATOCRIT. 40.9 % (42.0-52.0); HEMOGLOBIN. 14.5 g/dL (14.0-18.0); LYMPHOCYTES % 24.2 % (20.0-50.0); MEAN CORPUSCULAR HEMOGLOBIN 33.9 pg (28.0-32.0); MEAN CORPUSCULAR VOLUME 95.8 fL (80.0-94.0); MEAN PLATELET VOLUME 9.6 fl (7.4-10.4); MONOCYTES % 6.8 % (2.0-8.0); NEUTROPHILS % 68.8 % (40.0-76.0); PLATELET 92 x1000/uL (130-400); RED BLOOD CELL COUNT 4.27 mill/uL (4.7-6.1); RED CELL DISTRIBUTION WIDTH 14.7 % (11.6-14.6)
[2018-04-14 07:37] LABS: CHLORIDE 94 mEq/L (98-107)
[2018-04-14 07:52] LABS: CREATINE KINASE MB FRACTION 1.6 ng/mL (0.5-3.6)
[2018-04-14] MEDS ORDERED: DIGOXIN 500MCG/2ML AMP IV NR (07:58)
[2018-04-14] MEDS: AMLODIPINE 10MG TABLET PO SCH (08:03)
[2018-04-14] MEDS: ASPIRIN 81MG TABLET PO SCH (08:04)
[2018-04-14] MEDS: METOPROLOL TARTRATE 50MG TABLET PO SCH ×2 (08:04→22:16)
[2018-04-14 08:25] LABS: CREATINE KINASE 4296 IU/L (39-308)
[2018-04-14] MEDS ORDERED: FENTANYL CITRATE/PF 50MCG/ML 2ML VIAL ONE (16:23)
[2018-04-14] MEDS ORDERED: ROCURONIUM BROMIDE 10MG/ML VIAL 5ML IV ONE (16:23)
[2018-04-14] MEDS ORDERED: EPHEDRINE SULFATE 50MG/ML VIAL ONE (16:24)
[2018-04-14] MEDS ORDERED: ETOMIDATE 2MG/ML 10ML VIAL IV ONE (16:24)
[2018-04-14] MEDS ORDERED: PHENYLEPHRINE HCL 10 MG/ML 1ML (IV VIAL) IV ONE (16:30)
[2018-04-14] MEDS ORDERED: MIDAZOLAM HCL 2 MG/2 ML VIAL ONE (16:36)
[2018-04-14] MEDS ORDERED: CEFAZOLIN SODIUM 1000MG/VIAL ONE (16:42)
[2018-04-14] MEDS ORDERED: ONDANSETRON HCL 4MG/2ML INJ ONE (16:42)
[2018-04-14] MEDS ORDERED: LIDOCAINE HCL 1% 20ML VIAL (Pyxis) INJ ONE (17:08)
[2018-04-14] MEDS ORDERED: NEOSTIGMINE METHYLSULFATE 1MG/ML 10 ML VIAL ONE (18:04)
[2018-04-14] MEDS ORDERED: GLYCOPYRROLATE 0.2 MG/ML 2ML VIAL ONE (18:04)
[2018-04-14] MEDS ORDERED: ACETAMINOPHEN 325MG TABLET PO PRN (18:30)
[2018-04-14] MEDS ORDERED: ONDANSETRON HCL 4MG/2ML INJ IV PRN (18:45)
[2018-04-14] MEDS ORDERED: FENTANYL CITRATE/PF 50MCG/ML 2ML VIAL IV PRN ×2 (18:45)
[2018-04-15] VITALS (13 sets, daily range): BP systolic 105–128; BP diastolic 49–91
[2018-04-15] MEDS: IPRATROPIUM BROMIDE (0.02%) 0.5MG/2.5ML NEB HHN SCH ×5 (00:47→16:30)
[2018-04-15 03:42] LABS: CLARITY URINE CLEAR (CLEAR); COLOR URINE DARK YELLOW (YELLOW); KETONES URINE NEGATIVE (NEGATIVE); LEUKOCYTE ESTERASE URINE NEGATIVE (NEGATIVE); NITRITE URINE NEGATIVE (NEGATIVE); OCCULT BLOOD URINE NEGATIVE (NEGATIVE); PH URINE 5.5 (4.5-8.0); PROTEIN URINE 1+ (NEGATIVE); SPECIFIC GRAVITY URINE 1.016 (1.005-1.030)
[2018-04-15] MEDS: FUROSEMIDE 40MG/4ML VIAL IVP SCH ×2 (06:26→17:15)
[2018-04-15] MEDS: BLOOD SUGAR DIAGNOSTIC STRIP TEST SCH ×3 (06:50→16:50)
[2018-04-15 07:11] LABS: BASOPHILS % 0.2 % (0.0-2.0); HEMATOCRIT. 38.3 % (42.0-52.0); HEMOGLOBIN. 13.5 g/dL (14.0-18.0); LYMPHOCYTES % 38.2 % (20.0-50.0); MEAN CORPUSCULAR HEMOGLOBIN 33.6 pg (28.0-32.0); MEAN CORPUSCULAR VOLUME 95.8 fL (80.0-94.0); MEAN PLATELET VOLUME 9.5 fl (7.4-10.4); NEUTROPHILS % 51.6 % (40.0-76.0); PLATELET 82 x1000/uL (130-400); RED CELL DISTRIBUTION WIDTH 14.7 % (11.6-14.6)
[2018-04-15] MEDS: INSULIN LISPRO 100 UNITS/ML SUBCUT SCH ×3 (07:20→17:20)
[2018-04-15] MEDS: ASPIRIN 81MG TABLET PO SCH (08:30)
[2018-04-15] MEDS: AMLODIPINE 10MG TABLET PO SCH (08:31)
[2018-04-15] MEDS: METOPROLOL TARTRATE 50MG TABLET PO SCH (08:32)
[2018-04-15] MEDS: BUDESONIDE 0.5MG/2ML NEB HHN SCH (08:34)
[2018-04-15] MEDS: ENOXAPARIN 80MG/0.8ML SYR SUBCUT SCH (11:09)
== END 2018-04-15 18:30 | disposition home or self-care (01) | DRG 273 ==
LOC: ER 10:59 → 3WST 12:37 → EDBEDREQ 12:42 → EDBEDREQTM 12:42 → ENRESERV 15:31
PROVIDERS: ADMIT Internal Medicine; ATTEND Internal Medicine
PROC: 02583ZZ Destruction of Conduction Mechanism, Percutaneous Approach (ICD-10-PCS; principal; 2018-04-14)
PROC: 4A023FZ Measurement of Cardiac Rhythm, Percutaneous Approach (ICD-10-PCS; 2018-04-14)
PROC: 4A0234Z Measurement of Cardiac Electrical Activity, Percutaneous Approach (ICD-10-PCS; 2018-04-14)
PROC: 02K83ZZ Map Conduction Mechanism, Percutaneous Approach (ICD-10-PCS; 2018-04-14)
DX: I48.3 Typical atrial flutter (principal); I50.43 Acute on chronic combined systolic (congestive) and diastolic (congestive) heart failure; N17.0 Acute kidney failure with tubular necrosis; J96.00 Acute respiratory failure, unspecified whether with hypoxia or hypercapnia; E87.1 Hypo-osmolality and hyponatremia; I13.0 Hypertensive heart and chronic kidney disease with heart failure and stage 1 through stage 4 chronic kidney disease, or unspecified chronic kidney disease; I42.9 Cardiomyopathy, unspecified; D64.9 Anemia, unspecified; E11.9 Type 2 diabetes mellitus without complications; D69.6 Thrombocytopenia, unspecified; I11.0 Hypertensive heart disease with heart failure; I27.20 Pulmonary hypertension, unspecified; B19.20 Unspecified viral hepatitis C without hepatic coma; B18.2 Chronic viral hepatitis C; E11.22 Type 2 diabetes mellitus with diabetic chronic kidney disease; E78.5 Hyperlipidemia, unspecified; F17.210 Nicotine dependence, cigarettes, uncomplicated; I25.10 Atherosclerotic heart disease of native coronary artery without angina pectoris; I25.2 Old myocardial infarction; I25.5 Ischemic cardiomyopathy; I48.91 Unspecified atrial fibrillation; N18.9 Chronic kidney disease, unspecified; Z86.73 Personal history of transient ischemic attack (TIA), and cerebral infarction without residual deficits; Z95.1 Presence of aortocoronary bypass graft; Z71.6 Tobacco abuse counseling; Z79.4 Long term (current) use of insulin; Z79.82 Long term (current) use of aspirin; Z79.84 Long term (current) use of oral hypoglycemic drugs; Z79.899 Other long term (current) drug therapy; J44.9 Chronic obstructive pulmonary disease, unspecified
CPT/HCPCS: 36415; 36600; 71045; 80048; 80061; 82375; 82550; 82553; 82805; 82962; 83036; 83605; 83880; 84145; 84439; 84443; 84484; 85379; 93005; 93306; 93613; 93621; 93653; 93662; 93970; 94640; 94660; 96365; 96366; 96375; 97162; 97530; 99291; C1730; C1731; C1732; C1893; J0360; J0690; J0692; J0696; J1160; J1644; J1650; J1815; J1940; J2250; J2370; J2405; J2710; J3010; J3490; J7040; J7060; J7611; J7626; A4315

== ENCOUNTER 2018-09-17 03:03 | Inpatient (IN) | payer OTHER, MEDICAID ==
[~2018-09-17] VITALS: Ht 167.6 cm; Wt 70.8 kg
[2018-09-17] VITALS (58 sets, daily range): BP systolic 77–151; BP diastolic 41–91
[2018-09-17] MEDS ORDERED: NITROGLYCERIN OINT 1GM/INCH UDPKT TD ONE (04:00)
[2018-09-17 04:03] LABS: BASOPHILS % 0.5 % (0.0-2.0); EOSINOPHILS % 1.6 % (0.0-5.0); HEMATOCRIT. 46.9 % (42.0-52.0); LYMPHOCYTES % 25.1 % (20.0-50.0); MEAN CORPUSCULAR HEMOGLOBIN 33.9 pg (28.0-32.0); MEAN CORPUSCULAR VOLUME 99.6 fL (80.0-94.0); MEAN PLATELET VOLUME 9.7 fl (7.4-10.4); MONOCYTES % 3.7 % (2.0-8.0); NEUTROPHILS % 69.1 % (40.0-76.0); PLATELET 182 x1000/uL (130-400); RED BLOOD CELL COUNT 4.71 mill/uL (4.7-6.1); RED CELL DISTRIBUTION WIDTH 13.7 % (11.6-14.6)
[2018-09-17] MEDS: NITROGLYCERIN 0.4MG TABLET SL SL PRN ×2 (04:05→04:12)
[2018-09-17 04:10] LABS: CHLORIDE 105 mEq/L (98-107)
[2018-09-17 04:12] LABS: BG BASE EXCESS -8.5 mmol/L (-2.0-2.0); BG BILEVEL POS AIRWAY PRESSURE 15/5; BG CARBOXYHEMOGLOBIN 5.3 % (0.5-1.5); BG DEOXYHEMOGLOBIN 1.7 % (0.0-5.0); BG FRACTION INSPIRED OXYGEN 100; BG HCO3 ACT 23.5 mmol/L (22.0-26.0); BG METHEMOGLOBIN 0.3 % (0.0-1.5); BG OXYGEN SATURATION 98.2 % (92.0-98.5); BG OXYHEMOGLOBIN 92.7 % (94.0-97.0); BG PCO2 78.8 mmHg (35.0-45.0); BG PH 7.092 (7.350-7.450); BG PO2 160.4 mmHg (75.0-100.0); BG SAMPLE SITE RIGHT BRACHIAL; BG TOTAL HEMOGLOBIN 16.8 g/dL (12.0-18.0); BG VENT MODE MASK - BIPAP
[2018-09-17] MEDS ORDERED: CEFTRIAXONE 1 G PREMIX 50 ML IV SCH (04:15)
[2018-09-17] MEDS ORDERED: AZITHROMYCIN 500 MG in DEXT 5% WATER 250 ML IV SCH (04:15)
[2018-09-17] MEDS ORDERED: VANCOMYCIN 1 G PREMIX 200 ML IV SCH (04:15)
[2018-09-17] MEDS ORDERED: ETOMIDATE 2MG/ML 10ML VIAL IV ONE ×2 (04:24→05:15)
[2018-09-17] MEDS ORDERED: SUCCINYLCHOLINE CHLORIDE 200MG/10ML IV ONE ×2 (04:24→05:15)
[2018-09-17] MEDS ORDERED: PROPOFOL 10MG/ML 100ML 100 ML IV ONE (04:45)
[2018-09-17] MEDS ORDERED: NOREPINEPHRINE 4MG/250ML PMX 250 ML IV PRN (09:00)
[2018-09-17] MEDS ORDERED: DEXTROSE 50% WATER 50ML SYRINGE IV PRN (09:00)
[2018-09-17] MEDS ORDERED: PROPOFOL 10MG/ML 100ML 100 ML IV PRN (09:00)
[2018-09-17] MEDS ORDERED: NOREPINEPHRINE 4 MG in DEXTROSE 5% WATER 250 ML IV PRN (09:45)
[2018-09-17] MEDS: PANTOPRAZOLE SODIUM 40 MG/VIAL IV SCH (09:52)
[2018-09-17] MEDS: PROPOFOL 10MG/ML 100ML 100 ML IV PRN ×3 (09:53→21:46)
[2018-09-17 10:58] LABS: BG BASE EXCESS -2.4 mmol/L (-2.0-2.0); BG CARBOXYHEMOGLOBIN 1.8 % (0.5-1.5); BG DEOXYHEMOGLOBIN 0.5 % (0.0-5.0); BG FRACTION INSPIRED OXYGEN 100; BG HCO3 ACT 23.1 mmol/L (22.0-26.0); BG METHEMOGLOBIN 0.3 % (0.0-1.5); BG OXYGEN SATURATION 99.5 % (92.0-98.5); BG OXYHEMOGLOBIN 97.4 % (94.0-97.0); BG PCO2 42.4 mmHg (35.0-45.0); BG PH 7.354 (7.350-7.450); BG PO2 326.6 mmHg (75.0-100.0); BG SAMPLE SITE RIGHT RADIAL; BG TIDAL VOLUME(mL) 500 mL; BG TOTAL HEMOGLOBIN 15.9 g/dL (12.0-18.0); BG VENT MODE VENT - A/C; BG VENT RATE 14 set
[2018-09-17] MEDS: IPRATROPIUM/ALBUTEROL 0.5-3(2.5)MG/3ML NEB HHN SCH ×2 (12:31→20:33)
[2018-09-17] MEDS: ENOXAPARIN 40MG/0.4ML SYR SUBCUT SCH (12:42)
[2018-09-17] MEDS: BLOOD SUGAR DIAGNOSTIC STRIP TEST SCH ×3 (12:42→21:44)
[2018-09-17] MEDS: PIPERACILLIN/TAZ 3.375G PREMIX 50 ML IV SCH ×2 (12:42→21:44)
[2018-09-17] MEDS: INSULIN LISPRO 100 UNITS/ML SUBCUT SCH ×3 (12:51→21:00)
[2018-09-17] MEDS: FUROSEMIDE 40MG/4ML VIAL IVP SCH (16:13)
[2018-09-17 17:31] LABS: T4 FREE 1.21 ng/dL (0.76-1.46)
[2018-09-17 17:45] LABS: CREATINE KINASE MB FRACTION 4.7 ng/mL (0.5-3.6)
[2018-09-18] VITALS (57 sets, daily range): BP systolic 90–184; BP diastolic 40–104
[2018-09-18 01:28] LABS: CREATINE KINASE MB FRACTION 3.6 ng/mL (0.5-3.6)
[2018-09-18] MEDS: IPRATROPIUM/ALBUTEROL 0.5-3(2.5)MG/3ML NEB HHN SCH ×5 (01:29→20:44)
[2018-09-18] MEDS: PIPERACILLIN/TAZ 3.375G PREMIX 50 ML IV SCH ×3 (02:23→18:24)
[2018-09-18] MEDS: PROPOFOL 10MG/ML 100ML 100 ML IV PRN ×2 (02:24→06:07)
[2018-09-18 07:06] LABS: BASOPHILS % 0.3 % (0.0-2.0); EOSINOPHILS % 0.8 % (0.0-5.0); HEMATOCRIT. 40.1 % (42.0-52.0); HEMOGLOBIN. 13.9 g/dL (14.0-18.0); LYMPHOCYTES % 11.5 % (20.0-50.0); MEAN CORPUSCULAR HEMOGLOBIN 34.4 pg (28.0-32.0); MEAN CORPUSCULAR VOLUME 99.2 fL (80.0-94.0); MEAN PLATELET VOLUME 9.4 fl (7.4-10.4); MONOCYTES % 6.5 % (2.0-8.0); NEUTROPHILS % 80.9 % (40.0-76.0); PLATELET 113 x1000/uL (130-400); RED BLOOD CELL COUNT 4.04 mill/uL (4.7-6.1); RED CELL DISTRIBUTION WIDTH 13.8 % (11.6-14.6)
[2018-09-18 07:44] LABS: CREATINE KINASE MB FRACTION 1.4 ng/mL (0.5-3.6)
[2018-09-18] MEDS: INSULIN LISPRO 100 UNITS/ML SUBCUT SCH ×4 (08:20→23:35)
[2018-09-18] MEDS: FUROSEMIDE 40MG/4ML VIAL IVP SCH (08:42)
[2018-09-18] MEDS: PANTOPRAZOLE SODIUM 40 MG/VIAL IV SCH (08:42)
[2018-09-18] MEDS: AZITHROMYCIN 500 MG TABLET PO SCH (08:42)
[2018-09-18] MEDS: BLOOD SUGAR DIAGNOSTIC STRIP TEST SCH ×4 (08:43→23:35)
[2018-09-18 10:41] LABS: BG BASE EXCESS 1.3 mmol/L (-2.0-2.0); BG CARBOXYHEMOGLOBIN 0.7 % (0.5-1.5); BG FRACTION INSPIRED OXYGEN 60; BG METHEMOGLOBIN 0.2 % (0.0-1.5); BG OXYHEMOGLOBIN 96.1 % (94.0-97.0); BG PCO2 36.4 mmHg (35.0-45.0); BG PH 7.454 (7.350-7.450); BG PO2 93.2 mmHg (75.0-100.0); BG SAMPLE SITE RIGHT BRACHIAL; BG TIDAL VOLUME(mL) 500 mL; BG TOTAL HEMOGLOBIN 13.9 g/dL (12.0-18.0); BG VENT MODE VENT - A/C; BG VENT RATE 14 set
[2018-09-18] MEDS: ENOXAPARIN 40MG/0.4ML SYR SUBCUT SCH (11:01)
[2018-09-18] MEDS ORDERED: KCL 20MEQ/100ML PREMIX 100 ML IV NR (11:30)
[2018-09-18] MEDS: MIDAZOLAM HCL 50 MG in DEXTROSE 5% WATER 40 ML IV PRN ×2 (11:56→22:48)
[2018-09-18] MEDS: FENTANYL CITRATE/PF 500 MCG in SODIUM CHLORIDE 0.9% 40 ML IV PRN ×2 (11:57→22:47)
[2018-09-18] MEDS ORDERED: IPRATROPIUM/ALBUTEROL 0.5-3(2.5)MG/3ML NEB HHN PRN (13:15)
[2018-09-18 16:55] LABS: CLARITY URINE CLEAR (CLEAR); COLOR URINE YELLOW (YELLOW); KETONES URINE NEGATIVE (NEGATIVE); LEUKOCYTE ESTERASE URINE NEGATIVE (NEGATIVE); NITRITE URINE NEGATIVE (NEGATIVE); OCCULT BLOOD URINE 3+ (NEGATIVE); PROTEIN URINE NEGATIVE (NEGATIVE); SPECIFIC GRAVITY URINE 1.017 (1.005-1.030)
[2018-09-19] VITALS (44 sets, daily range): BP systolic 112–165; BP diastolic 57–81
[2018-09-19] MEDS: IPRATROPIUM/ALBUTEROL 0.5-3(2.5)MG/3ML NEB HHN SCH ×4 (01:38→20:43)
[2018-09-19] MEDS: PIPERACILLIN/TAZ 3.375G PREMIX 50 ML IV SCH ×3 (02:07→18:29)
[2018-09-19] MEDS: INSULIN LISPRO 100 UNITS/ML SUBCUT SCH ×4 (06:00→23:38)
[2018-09-19] MEDS: BLOOD SUGAR DIAGNOSTIC STRIP TEST SCH ×4 (06:05→23:38)
[2018-09-19 06:10] LABS: HEMATOCRIT. 37.8 % (42.0-52.0); HEMOGLOBIN. 13.1 g/dL (14.0-18.0); MEAN CORPUSCULAR HEMOGLOBIN 34.1 pg (28.0-32.0); MEAN CORPUSCULAR VOLUME 98.8 fL (80.0-94.0); MEAN PLATELET VOLUME 9.4 fl (7.4-10.4); PLATELET 119 x1000/uL (130-400); RED BLOOD CELL COUNT 3.83 mill/uL (4.7-6.1); RED CELL DISTRIBUTION WIDTH 13.5 % (11.6-14.6)
[2018-09-19 07:11] LABS: PLATELET ESTIMATE SLIGHTLY DECREASED
[2018-09-19 08:45] LABS: BG BASE EXCESS 0.1 mmol/L (-2.0-2.0); BG CARBOXYHEMOGLOBIN 0.4 % (0.5-1.5); BG FRACTION INSPIRED OXYGEN 60; BG METHEMOGLOBIN 0.3 % (0.0-1.5); BG OXYHEMOGLOBIN 96.3 % (94.0-97.0); BG PCO2 36.8 mmHg (35.0-45.0); BG PH 7.433 (7.350-7.450); BG PO2 97.7 mmHg (75.0-100.0); BG SAMPLE SITE LEFT BRACHIAL; BG TIDAL VOLUME(mL) 500 mL; BG TOTAL HEMOGLOBIN 13.1 g/dL (12.0-18.0); BG VENT MODE VENT - A/C; BG VENT RATE 14 set
[2018-09-19] MEDS ORDERED: POTASSIUM CHLORIDE 20MEQ TABLET SR PO SCH (09:15)
[2018-09-19] MEDS: FUROSEMIDE 40MG/4ML VIAL IVP SCH (09:17)
[2018-09-19] MEDS: AZITHROMYCIN 500 MG TABLET PO SCH (09:18)
[2018-09-19] MEDS: PANTOPRAZOLE SODIUM 40 MG/VIAL IV SCH (12:05)
[2018-09-19] MEDS: ENOXAPARIN 40MG/0.4ML SYR SUBCUT SCH (12:06)
[2018-09-19 22:03] LABS: CLARITY URINE TURBID (CLEAR); COLOR URINE YELLOW (YELLOW); KETONES URINE TRACE (NEGATIVE); LEUKOCYTE ESTERASE URINE NEGATIVE (NEGATIVE); NITRITE URINE NEGATIVE (NEGATIVE); OCCULT BLOOD URINE 3+ (NEGATIVE); PROTEIN URINE 1+ (NEGATIVE); SPECIFIC GRAVITY URINE 1.026 (1.005-1.030)
[2018-09-19] MEDS: PIPERACILLIN/TAZ 2.25G PREMIX 50 ML IV SCH (23:21)
[2018-09-19] MEDS: MIDAZOLAM HCL 50 MG in DEXTROSE 5% WATER 40 ML IV PRN (23:22)
[2018-09-19] MEDS: FENTANYL CITRATE/PF 500 MCG in SODIUM CHLORIDE 0.9% 40 ML IV PRN (23:22)
[2018-09-20] VITALS (50 sets, daily range): BP systolic 110–166; BP diastolic 56–87
[2018-09-20] MEDS: IPRATROPIUM/ALBUTEROL 0.5-3(2.5)MG/3ML NEB HHN SCH ×4 (02:22→20:32)
[2018-09-20] MEDS: PIPERACILLIN/TAZ 2.25G PREMIX 50 ML IV SCH ×4 (05:13→23:27)
[2018-09-20] MEDS: INSULIN LISPRO 100 UNITS/ML SUBCUT SCH ×4 (05:57→23:36)
[2018-09-20] MEDS: BLOOD SUGAR DIAGNOSTIC STRIP TEST SCH ×4 (05:57→23:36)
[2018-09-20 06:21] LABS: BASOPHILS % 0.3 % (0.0-2.0); EOSINOPHILS % 3.8 % (0.0-5.0); HEMOGLOBIN. 13.1 g/dL (14.0-18.0); LYMPHOCYTES % 10.5 % (20.0-50.0); MEAN CORPUSCULAR HEMOGLOBIN 34.6 pg (28.0-32.0); MEAN CORPUSCULAR VOLUME 97.9 fL (80.0-94.0); MEAN PLATELET VOLUME 9.3 fl (7.4-10.4); MONOCYTES % 6.6 % (2.0-8.0); NEUTROPHILS % 78.8 % (40.0-76.0); PLATELET 123 x1000/uL (130-400); RED BLOOD CELL COUNT 3.78 mill/uL (4.7-6.1); RED CELL DISTRIBUTION WIDTH 13.4 % (11.6-14.6)
[2018-09-20 08:28] LABS: BG BASE EXCESS 1.2 mmol/L (-2.0-2.0); BG CARBOXYHEMOGLOBIN 0.3 % (0.5-1.5); BG DEOXYHEMOGLOBIN 2.8 % (0.0-5.0); BG FRACTION INSPIRED OXYGEN 60; BG HCO3 ACT 24.8 mmol/L (22.0-26.0); BG METHEMOGLOBIN 0.3 % (0.0-1.5); BG OXYGEN SATURATION 97.2 % (92.0-98.5); BG OXYHEMOGLOBIN 96.6 % (94.0-97.0); BG PCO2 35.7 mmHg (35.0-45.0); BG PH 7.459 (7.350-7.450); BG PO2 99.4 mmHg (75.0-100.0); BG SAMPLE SITE RIGHT BRACHIAL; BG TIDAL VOLUME(mL) 500 mL; BG TOTAL HEMOGLOBIN 13.1 g/dL (12.0-18.0); BG VENT MODE VENT - A/C; BG VENT RATE 14 set
[2018-09-20] MEDS ORDERED: POTASSIUM CHLORIDE 20MEQ/PACKET NG NR (09:00)
[2018-09-20] MEDS: PANTOPRAZOLE SODIUM 40 MG/VIAL IV SCH ×2 (09:32→09:46)
[2018-09-20] MEDS: AZITHROMYCIN 500 MG TABLET PO SCH ×2 (09:32→09:47)
[2018-09-20] MEDS: FUROSEMIDE 40MG/4ML VIAL IVP SCH ×2 (09:32→09:46)
[2018-09-20] MEDS: ENOXAPARIN 40MG/0.4ML SYR SUBCUT SCH (09:52)
[2018-09-20 09:53] LABS: PHOSPHORUS 2.9 mg/dL (2.5-4.9)
[2018-09-20] MEDS: HYDRALAZINE 20MG/ML VIAL IV PRN (22:28)
[2018-09-20] MEDS: FENTANYL CITRATE/PF 500 MCG in SODIUM CHLORIDE 0.9% 40 ML IV PRN (22:29)
[2018-09-21] VITALS (47 sets, daily range): BP systolic 133–185; BP diastolic 60–98
[2018-09-21] MEDS: IPRATROPIUM/ALBUTEROL 0.5-3(2.5)MG/3ML NEB HHN SCH ×4 (02:13→21:11)
[2018-09-21] MEDS: BLOOD SUGAR DIAGNOSTIC STRIP TEST SCH ×4 (05:52→23:11)
[2018-09-21] MEDS: PIPERACILLIN/TAZ 2.25G PREMIX 50 ML IV SCH ×2 (05:55→11:42)
[2018-09-21] MEDS: INSULIN LISPRO 100 UNITS/ML SUBCUT SCH ×4 (05:56→23:11)
[2018-09-21 06:20] LABS: BASOPHILS % 0.4 % (0.0-2.0); EOSINOPHILS % 4.8 % (0.0-5.0); HEMATOCRIT. 37.9 % (42.0-52.0); HEMOGLOBIN. 13.3 g/dL (14.0-18.0); LYMPHOCYTES % 10.2 % (20.0-50.0); MEAN CORPUSCULAR HEMOGLOBIN 34.2 pg (28.0-32.0); MEAN CORPUSCULAR VOLUME 97.7 fL (80.0-94.0); MEAN PLATELET VOLUME 8.9 fl (7.4-10.4); MONOCYTES % 7.1 % (2.0-8.0); NEUTROPHILS % 77.5 % (40.0-76.0); PLATELET 140 x1000/uL (130-400); RED BLOOD CELL COUNT 3.88 mill/uL (4.7-6.1); RED CELL DISTRIBUTION WIDTH 13.4 % (11.6-14.6)
[2018-09-21 06:56] LABS: CHLORIDE 109 mEq/L (98-107)
[2018-09-21 07:51] LABS: BG BASE EXCESS 2.5 mmol/L (-2.0-2.0); BG CARBOXYHEMOGLOBIN 0.1 % (0.5-1.5); BG DEOXYHEMOGLOBIN 4.5 % (0.0-5.0); BG HCO3 ACT 25.3 mmol/L (22.0-26.0); BG METHEMOGLOBIN 0.3 % (0.0-1.5); BG OXYGEN SATURATION 95.5 % (92.0-98.5); BG OXYHEMOGLOBIN 95.1 % (94.0-97.0); BG PCO2 33.7 mmHg (35.0-45.0); BG PH 7.494 (7.350-7.450); BG PO2 79.5 mmHg (75.0-100.0); BG SAMPLE SITE RIGHT RADIAL; BG TIDAL VOLUME(mL) 500 mL; BG TOTAL HEMOGLOBIN 13.6 g/dL (12.0-18.0); BG VENT MODE VENT - A/C; BG VENT RATE 14 set
[2018-09-21] MEDS ORDERED: POTASSIUM CHLORIDE 20MEQ/PACKET NG NR (08:15)
[2018-09-21] MEDS ORDERED: POTASSIUM CHLORIDE 20MEQ/PACKET NG SCH (09:00)
[2018-09-21] MEDS ORDERED: AZITHROMYCIN 500 MG TABLET PO SCH (09:30)
[2018-09-21 09:37] LABS: BG BASE EXCESS 2.9 mmol/L (-2.0-2.0); BG CARBOXYHEMOGLOBIN 0.7 % (0.5-1.5); BG CPAP (cmH2O) 0 cm(H2O); BG DEOXYHEMOGLOBIN 8.6 % (0.0-5.0); BG HCO3 ACT 27.7 mmol/L (22.0-26.0); BG METHEMOGLOBIN 0.2 % (0.0-1.5); BG OXYGEN SATURATION 91.3 % (92.0-98.5); BG OXYHEMOGLOBIN 90.5 % (94.0-97.0); BG PCO2 43.3 mmHg (35.0-45.0); BG PH 7.424 (7.350-7.450); BG PO2 64.1 mmHg (75.0-100.0); BG SAMPLE SITE RIGHT RADIAL; BG TOTAL HEMOGLOBIN 13.9 g/dL (12.0-18.0); BG VENT MODE VENT - CPAP
[2018-09-21] MEDS: FUROSEMIDE 40MG/4ML VIAL IVP SCH (09:59)
[2018-09-21] MEDS: PANTOPRAZOLE SODIUM 40 MG/VIAL IV SCH (09:59)
[2018-09-21] MEDS: POTASSIUM CHLORIDE 20MEQ/PACKET NG SCH ×2 (11:42→23:03)
[2018-09-21] MEDS: ENOXAPARIN 40MG/0.4ML SYR SUBCUT SCH (11:42)
[2018-09-21] MEDS ORDERED: GUAIFENESIN 200MG/10ML SUGAR FREE UDC NG PRN (15:00)
[2018-09-21] MEDS ORDERED: MAGNESIUM HYDROXIDE 400MG/5ML 30ML UDC NG PRN (15:00)
[2018-09-21] MEDS: HYDRALAZINE 20MG/ML VIAL IV PRN (18:03)
[2018-09-21] MEDS ORDERED: CARVEDILOL 12.5MG TABLET PO NR (20:00)
[2018-09-21] MEDS ORDERED: HYDRALAZINE 20MG/ML VIAL IV PRN (20:00)
[2018-09-21] MEDS ORDERED: LOSARTAN POTASSIUM 25 MG TABLET PO NR (20:00)
[2018-09-21] MEDS ORDERED: FLOV44 INH (21:32)
[2018-09-21] MEDS ORDERED: LISI-186 PO (21:32)
[2018-09-22] VITALS (20 sets, daily range): BP systolic 116–150; BP diastolic 58–95
[2018-09-22 05:04] LABS: CHLORIDE 108 mEq/L (98-107)
[2018-09-22] MEDS: INSULIN LISPRO 100 UNITS/ML SUBCUT SCH ×4 (06:00→23:53)
[2018-09-22] MEDS: ACETAMINOPHEN 325MG TABLET PO PRN (06:21)
[2018-09-22] MEDS: BLOOD SUGAR DIAGNOSTIC STRIP TEST SCH ×4 (06:26→23:53)
[2018-09-22] MEDS: IPRATROPIUM/ALBUTEROL 0.5-3(2.5)MG/3ML NEB HHN SCH ×3 (07:54→20:05)
[2018-09-22] MEDS: CARVEDILOL 12.5MG TABLET PO SCH (09:41)
[2018-09-22] MEDS: FUROSEMIDE 40MG/4ML VIAL IVP SCH (09:41)
[2018-09-22] MEDS: LOSARTAN POTASSIUM 25 MG TABLET PO SCH (09:42)
[2018-09-22] MEDS: PANTOPRAZOLE SODIUM 40 MG/VIAL IV SCH (12:20)
[2018-09-22] MEDS: ENOXAPARIN 40MG/0.4ML SYR SUBCUT SCH (12:20)
[2018-09-22] MEDS: POTASSIUM CHLORIDE 20MEQ/PACKET NG SCH ×2 (12:21→23:50)
[2018-09-23] VITALS: BP 123/55
[2018-09-23] MEDS: IPRATROPIUM/ALBUTEROL 0.5-3(2.5)MG/3ML NEB HHN SCH ×4 (01:30→20:37)
[2018-09-23 04:00] VITALS: BP 157/51
[2018-09-23] MEDS: BLOOD SUGAR DIAGNOSTIC STRIP TEST SCH ×4 (06:29→23:47)
[2018-09-23] MEDS: INSULIN LISPRO 100 UNITS/ML SUBCUT SCH ×4 (06:36→23:47)
[2018-09-23 08:00] VITALS: BP 141/63
[2018-09-23] MEDS: LOSARTAN POTASSIUM 25 MG TABLET PO SCH (09:25)
[2018-09-23] MEDS: CARVEDILOL 12.5MG TABLET PO SCH (09:25)
[2018-09-23] MEDS: PANTOPRAZOLE SODIUM 40 MG/VIAL IV SCH (09:26)
[2018-09-23] MEDS: FUROSEMIDE 40MG/4ML VIAL IVP SCH (09:26)
[2018-09-23] MEDS: ENOXAPARIN 40MG/0.4ML SYR SUBCUT SCH (11:22)
[2018-09-23] MEDS: POTASSIUM CHLORIDE 20MEQ/PACKET NG SCH ×2 (11:23→23:47)
[2018-09-23 12:00] VITALS: BP 132/60
[2018-09-23 16:00] VITALS: BP 143/55
[2018-09-23 20:00] VITALS: BP 177/54
[2018-09-24] VITALS: BP 139/77
[2018-09-24] MEDS: IPRATROPIUM/ALBUTEROL 0.5-3(2.5)MG/3ML NEB HHN SCH ×2 (01:40→07:56)
[2018-09-24 04:00] VITALS: BP 142/72
[2018-09-24] MEDS: INSULIN LISPRO 100 UNITS/ML SUBCUT SCH (06:00)
[2018-09-24] MEDS: BLOOD SUGAR DIAGNOSTIC STRIP TEST SCH (06:15)
[2018-09-24] MEDS: ACETAMINOPHEN 325MG TABLET PO PRN (08:32)
[2018-09-24] MEDS: FUROSEMIDE 40MG/4ML VIAL IVP SCH (08:32)
[2018-09-24] MEDS: CARVEDILOL 12.5MG TABLET PO SCH (08:33)
[2018-09-24] MEDS: LOSARTAN POTASSIUM 25 MG TABLET PO SCH (08:33)
[2018-09-24] MEDS ORDERED: FAMOTIDINE 20MG/2ML VIAL IV SCH (09:00)
== END 2018-09-24 13:00 | disposition left against medical advice (07) | DRG 207 ==
LOC: ER 03:03 → EDBD 03:03 → EDUNIT# 03:03 → EDBEDREQTM 04:40 → EDBEDREQ 04:40 → EDBEDREQSVC 04:40 → ENRESERV 07:03 → CVICU 08:05 → 8WST 09-22 16:20
PROVIDERS: ADMIT Internal Medicine; ATTEND Internal Medicine
PROC: 5A1955Z Respiratory Ventilation, Greater than 96 Consecutive Hours (ICD-10-PCS; principal; 2018-09-17)
PROC: 5A09357 Assistance with Respiratory Ventilation, Less than 24 Consecutive Hours, Continuous Positive Airway Pressure (ICD-10-PCS; 2018-09-17)
PROC: 0BH17EZ Insertion of Endotracheal Airway into Trachea, Via Natural or Artificial Opening (ICD-10-PCS; 2018-09-17)
PROC: 06HY33Z Insertion of Infusion Device into Lower Vein, Percutaneous Approach (ICD-10-PCS; 2018-09-17)
PROC: B54BZZA Ultrasonography of Right Lower Extremity Veins, Guidance (ICD-10-PCS; 2018-09-17)
DX: J96.01 Acute respiratory failure with hypoxia (principal); I50.43 Acute on chronic combined systolic (congestive) and diastolic (congestive) heart failure; G93.41 Metabolic encephalopathy; J44.1 Chronic obstructive pulmonary disease with (acute) exacerbation; N17.9 Acute kidney failure, unspecified; I48.92 Unspecified atrial flutter; J44.0 Chronic obstructive pulmonary disease with (acute) lower respiratory infection; I25.5 Ischemic cardiomyopathy; E11.9 Type 2 diabetes mellitus without complications; E78.1 Pure hyperglyceridemia; I27.20 Pulmonary hypertension, unspecified; E78.5 Hyperlipidemia, unspecified; E87.6 Hypokalemia; F17.200 Nicotine dependence, unspecified, uncomplicated; I48.2 Chronic atrial fibrillation; I11.0 Hypertensive heart disease with heart failure; T50.2X5A Adverse effect of carbonic-anhydrase inhibitors, benzothiadiazides and other diuretics, initial encounter; I49.9 Cardiac arrhythmia, unspecified; B95.2 Enterococcus as the cause of diseases classified elsewhere; Z16.21 Resistance to vancomycin; I25.10 Atherosclerotic heart disease of native coronary artery without angina pectoris; Z91.14 Patient's other noncompliance with medication regimen; Z95.1 Presence of aortocoronary bypass graft; Y92.89 Other specified places as the place of occurrence of the external cause; Z86.19 Personal history of other infectious and parasitic diseases; Z79.82 Long term (current) use of aspirin; Z79.899 Other long term (current) drug therapy; Z79.84 Long term (current) use of oral hypoglycemic drugs; I25.2 Old myocardial infarction; Z78.1 Physical restraint status; Z53.21 Procedure and treatment not carried out due to patient leaving prior to being seen by health care provider
CPT/HCPCS: 31500; 36415; 36556; 36600; 51702; 71045; 76770; 78580; 80048; 80061; 82375; 82550; 82553; 82805; 82962; 83036; 83605; 83735; 83880; 84100; 84145; 84439; 84443; 84478; 84484; 85379; 87070; 92610; 93005; 93306; 93970; 94003; 94640; 94660; 96365; 96367; 96375; 99291; A6261; C9113; J0330; J0360; J0456; J0696; J1650; J1815; J1940; J2250; J2543; J2704; J3010; J3370; J3480; J3490; J7050; J7060; J7620; A4315